=== PATIENT | female | born 1955 | race Caucasian/White ===

== ENCOUNTER 2018-01-03 14:29 | Emergency (ER) | payer OTHER ==
[2018-01-03] MEDS ORDERED: NS 0.9% 1000 ML* 1,000 ML IV ONE (15:48)
--- NOTE | 2018-01-03 16:09 | RAD ---
HISTORY: Chest pain COMPARISONS: September 16, 2015 VIEWS: 5: Frontal dual-energy and lateral views of the chest. FINDINGS: CARDIOMEDIASTINAL SILHOUETTE: The cardiomediastinal silhouette is normal. SOY: The soy are normal. PLEURA: The costophrenic angles are sharp. No pleural abnormalities are noted. LUNG PARENCHYMA: There is hyperinflation with flattening of the diaphragm and expansion of the AP diameter of the chest. ABDOMEN: The upper abdomen is clear. There is no subphrenic gas. BONES AND SOFT TISSUES: No bone or soft tissue abnormalities are noted. OTHER: None. IMPRESSION: HYPERINFLATION, CONSISTENT WITH COPD. NO ACTIVE CARDIOPULMONARY DISEASE.
[2018-01-03 16:30] LABS: ABS Basophils 0.1 10^3/ul (0-0.2); ABS Eosinophils 0.4 10^3/ul (0-0.6); ABS Lymphocytes 2.3 10^3/ul (1.0-4.8); ABS Monocytes 0.6 10^3/ul (0-0.8); ABS Neutrophils 4.2 10^3/ul (1.5-7.7); ABS Nucleated RBC 0 10^3/ul; Eosinophil % 5.9 % (0-6); Hematocrit 40 % (35-47); Hemoglobin 13.2 g/dl (12.0-16.0); Mean Corpuscular HGB Conc 33 g/dl (31-36); Mean Corpuscular Hemoglobin 30 pg (27-31); Mean Corpuscular Volume 91 fL (80-97); Mean Platelet Volume 9 um3 (7.4-10.4); Nucleated Red Blood Cells % 0; Platelet Count 212 10^3/ul (150-450); Red Blood Count 4.37 10^6/ul (4.0-5.4); Red Cell Distribution Width 13 % (10.5-15); White Blood Count 7.6 10^3/ul (3.5-10.8)
[2018-01-03 16:42] LABS: EGFR Non-African American 69.9 (>60)
[2018-01-03 16:57] LABS: INR 0.85 (0.77-1.02)
[2018-01-03] MEDS ORDERED: Methadone TAB* 5 MG PO ONE (17:28)
[2018-01-03] MEDS ORDERED: Iohexol 350* (CONTRAST) 500 ML MDV IV ONE (17:41)
[2018-01-03 17:45] LABS: Urine Appearance Clear; Urine Blood Negative (Negative); Urine Color Yellow; Urine Ketones Negative (Negative); Urine Protein Negative (Negative); Urine Specific Gravity 1.016 (1.010-1.030); Urine Urobilinogen Negative (Negative)
--- NOTE | 2018-01-03 18:16 | RAD ---
HISTORY: Pleuritic chest pain, left flank pain COMPARISONS: CT dated September 05 July 20, 2015. TECHNIQUE: Multiple contiguous axial CT scans of the chest were obtained after the administration of nonionic intravenous contrast, timed to the pulmonary arterial phase of contrast enhancement.. Coronal and sagittal multiplanar reformations are also submitted for review. FINDINGS: NECK AND THYROID: The lower neck and thyroid are unremarkable. CHEST WALL: There is no lower cervical, axillary, or supraclavicular lymphadenopathy by size criteria. HEART AND PERICARDIUM: The heart is unremarkable. AORTA AND PULMONARY VASCULATURE: There is no pulmonary arterial filling defect to suggest pulmonary embolism. There is no linear filling defect within the aorta to suggest aortic dissection. MEDIASTINUM: Again noted are mildly enlarged mediastinal lymph nodes, stable from the previous examination. SOY: Again noted are mildly enlarged hilar lymph nodes, stable from the previous examination. AIRWAY AND ESOPHAGUS: The airway is unremarkable, without endobronchial filling defect. The esophagus is grossly normal. LUNG PARENCHYMA: The lungs are clear. PLEURA: No pleural abnormalities are noted. UPPER ABDOMEN: There is intrahepatic and extrahepatic biliary dilatation. This is progressed compared to September 14, 2015. BONES AND SOFT TISSUES: No bone or soft tissue abnormalities are noted. OTHER: None. IMPRESSION: 1. NO PULMONARY ARTERIAL FILLING DEFECT TO SUGGEST PULMONARY EMBOLISM. 2. AGAIN NOTED BILIARY DILATATION, PROGRESSED FROM SEPTEMBER 14, 2015. 3. STABLE HILAR AND MEDIASTINAL LYMPHADENOPATHY.
[2018-01-03] MEDS ORDERED: Azithromycin TAB* 250 MG PO ONE (19:21)
[2018-01-03] MEDS ORDERED: Benzonatate CAP* 100 MG PO ONE (19:22)
[2018-01-03 19:30] VITALS: BP 165/74
--- NOTE | 2018-01-04 20:36 | ED ---
Lex Babb Natalie, scribed for Amanda Menjivar MD on 01/03/18 at 1750 . HPI Chest Pain - HPI Summary HPI Summary: The pt is a 62 y/o F presenting to the ED c/o sudden onset left flank pain starting today. She felt alright all day, but then after walking around for a while, her left side of her back started to hurt. The pain was sharp, and she felt like she couldnt walk. The pain worsens with movement. It radiated to her front, but is not as severe in the front as the back. The pain is rated 8/10. She has had a painful productive cough with yellow sputum for the last week as well. The patient states that it felt like she had pneumonia again. She has no urinary symptoms or pain in calves. On 12/29/17, the patient was given Tamiflu to take 75mg BID for five days. She was vomiting and sleeping all day while on the Tamiflu. She takes 5mg of Methadone as prescribed for pain management from Dr. Price.She has hx of complex regional pain syndrome of her right shoulder with stellate gangion injections for pain. She has no hx of kidney stones. She has surgical history of cholecystectomy and rotator cuff surgery in right shoulder. FHx of cancer. Her PCP is Dr. Saez - History of Current Complaint Chief Complaint: EDShortnessOfBreath Time Seen by Provider: 01/03/18 15:41 Hx Obtained From: Patient Onset/Duration: Started Hours Ago - earlier today, Still Present Timing: Constant Initial Severity: Severe Current Severity: Moderate Pain Intensity: 8 Pain Scale Used: 0-10 Numeric Chest Pain Location: Left Lateral, Right Lateral Chest Pain Radiates: Yes Chest Pain Radiates To:: Flank Character: Cough, Productive, Sharp/Stabbing Aggravating Factor(s): Movement Alleviating Factor(s): Rest Associated Signs and Symptoms: Positive: Chest Pain, Productive Cough - yellow sputum, Back Pain, Other: - NEGATIVE: urinary symptoms, calf pain Related History: Similar Episode/Dx as: - pneumonia - Additional Pertinent History Primary Care Physician: [id number] - Allergy/Home Medications Allergies/Adverse Reactions: Allergies Allergy/AdvReac Type Severity Reaction Status Date / Time amitriptyline Allergy Unknown Verified 01/03/18 18:31 Reaction Details ciprofloxacin Allergy Unknown Verified 01/03/18 18:31 Reaction Details duloxetine [From Cymbalta] Allergy Unknown Verified 01/03/18 18:31 Reaction Details dyphylline Allergy Unknown Verified 01/03/18 18:34 Reaction Details gabapentin Allergy Anxiety Verified 01/03/18 18:32 oxycodone Allergy Vomiting Verified 01/03/18 18:31 pregabalin [From Lyrica] Allergy Anxiety Verified 01/03/18 18:31 shrimp Allergy Unknown Verified 01/03/18 18:31 Reaction Details trazodone Allergy Unknown Verified 01/03/18 18:31 Reaction Details PMH/Surg Hx/FS Hx/Imm Hx Previously Healthy: No Endocrine/Hematology History: Denies: Hx Diabetes Cardiovascular History: Denies: Hx Congestive Heart Failure, Hx Hypertension Respiratory History: Reports: Hx Pneumonia - 09/17/15 History: Denies: Hx Renal Disease Musculoskeletal History: Reports: Hx Back Problems, Hx Bursitis - Hx OF, RT SHOULDER, Hx Orthopedic Injury - Fractured Left Foot 12/2013 Sensory History: Reports: Other Sensory Impairments - CRPS right shoulder/arm Neurological History: Reports: Hx Headaches Psychiatric History: Reports: Hx Depression - ON DAILY MEDS - Cancer History Hx Chemotherapy: No Hx Radiation Therapy: No - Surgical History Surgery Procedure, Year, and Place: cholecystectomy [facility]. 2010 Right rotator cuff [facility]. 01/27/14 Left 5th MTP/foot repair Hx Anesthesia Reactions: No Infectious Disease History: No Infectious Disease History: Denies: Traveled Outside the [place] in Last 30 Days - Family History Known Family History: Positive: Other - cancer - Social History Lives: With Family Alcohol Use: Weekly Alcohol Amount: 1 DRINK/WEEK Substance Use Type: Reports: None Substance Use Comment - Amount & Last Used: methadone, klonopin as prescribed by pain clinic Smoking Status (MU): Former Smoker Type: Cigarettes Amount Used/How Often: 1PPD 20 YRS Length of Time of Smoking/Using Tobacco: 20 years Have You Smoked in the Last Year: No Review of Systems Constitutional: Negative Positive: Chest Pain Positive: Cough - productive Gastrointestinal: Negative Positive: flank pain - left, other - no urinary symptoms Positive: Other - no calf pain Skin: Negative Negative: Rash Neurological: Negative Psychological: Normal All Other Systems Reviewed And Are Negative: Yes Physical Exam Triage Information Reviewed: Yes Vital Signs On Initial Exam: Initial Vitals Temp Pulse Resp BP Pulse Ox 98 F 75 20 161/82 94 01/03/18 14:39 01/03/18 14:39 01/03/18 14:39 01/03/18 14:39 01/03/18 14:39 Vital Signs Reviewed: Yes Appearance: Positive: Well-Nourished, Ill-Appearing, Pain Distress Skin: Positive: Warm, Skin Color Reflects Adequate Perfusion Head/Face: Positive: Normal Head/Face Inspection Eyes: Positive: Conjunctiva Clear ENT: Positive: Normal ENT inspection Neck: Positive: Supple Respiratory/Lung Sounds: Positive: Other - Lungs clear, Normal breath sounds, no respiratory distress Cardiovascular: Positive: Other - RRR, No murmur, pulses normal, brisk capillary refill Abdomen Description: Positive: Nontender, Soft. Negative: CVA Tenderness (R), CVA Tenderness (L) Bowel Sounds: Positive: Present Musculoskeletal: Positive: Strength/ROM Intact. Negative: Juliette Sign Left, Juliette Sign Right, Edema Left, Edema Right Neurological: Positive: Sensory/Motor Intact, Alert, Oriented to Person Place, Time, Other - Alert, muscle tone normal, facial symmetry, speech normal, sensory /motor intact. Negative: Focal Deficit @ Psychiatric: Positive: Normal Diagnostics - Vital Signs Vital Signs Temp Pulse Resp BP Pulse Ox 01/03/18 17:24 95 01/03/18 14:39 98 F 75 20 161/82 94 - Laboratory Lab Results: Lab Results 01/03/18 01/03/18 01/03/18 Range/Units 16:06 16:06 16:06 WBC (3.5-10.8) 10^3/ul RBC (4.0-5.4) 10^6/ul Hgb (12.0-16.0) g/dl Hct (35-47) % MCV (80-97) fL MCH (27-31) pg MCHC (31-36) g/dl RDW (10.5-15) % Plt Count (150-450) 10^3/ul MPV (7.4-10.4) um3 Neut % (Auto) (38-83) % Lymph % (Auto) (25-47) % Hitchcock % (Auto) (1-9) % Eos % (Auto) (0-6) % Baso % (Auto) (0-2) % Absolute Neuts (auto) (1.5-7.7) 10^3/ul Absolute Lymphs (auto) (1.0-4.8) 10^3/ul Absolute Monos (auto) (0-0.8) 10^3/ul Absolute Eos (auto) (0-0.6) 10^3/ul Absolute Basos (auto) (0-0.2) 10^3/ul Absolute Nucleated RBC 10^3/ul Nucleated RBC % INR (Anticoag Therapy) 0.85 (0.77-1.02) D-Dimer, Quantitative 303 H (Less Than 230) ng/mL Sodium 139 (133-145) mmol/L Potassium 4.2 (3.5-5.0) mmol/L Chloride 103 (101-111) mmol/L Carbon Dioxide 30 (22-32) mmol/L Anion Gap 6 (2-11) mmol/L BUN 21 (6-24) mg/dL Creatinine 0.83 (0.51-0.95) mg/dL Est GFR ( Amer) 89.9 (>60) Est GFR (Non-Af Amer) 69.9 (>60) BUN/Creatinine Ratio 25.3 H (8-20) Glucose 93 (70-100) mg/dL Lactic Acid (0.5-2.0) mmol/L Calcium 9.5 (8.6-10.3) mg/dL Total Bilirubin 0.20 (0.2-1.0) mg/dL AST 16 (13-39) U/L ALT 32 (7-52) U/L Alkaline Phosphatase 52 (34-104) U/L Total Creatine Kinase 70 (10-223) U/L CK-MB (CK-2) 1.9 (0.6-6.3) ng/mL Troponin I 0.00 (<0.04) ng/mL C-Reactive Protein 8.52 H (< 5.00) mg/L B-Natriuretic Peptide 50 ( - 100) pg/mL Total Protein 7.4 (6.4-8.9) g/dL Albumin 4.0 (3.2-5.2) g/dL Globulin 3.4 (2-4) g/dL Albumin/Globulin Ratio 1.2 (1-3) 01/03/18 01/03/18 Range/Units 16:06 16:06 WBC 7.6 (3.5-10.8) 10^3/ul RBC 4.37 (4.0-5.4) 10^6/ul Hgb 13.2 (12.0-16.0) g/dl Hct 40 (35-47) % MCV 91 (80-97) fL MCH 30 (27-31) pg MCHC 33 (31-36) g/dl RDW 13 (10.5-15) % Plt Count 212 (150-450) 10^3/ul MPV 9 (7.4-10.4) um3 Neut % (Auto) 55.8 (38-83) % Lymph % (Auto) 30.0 (25-47) % Hitchcock % (Auto) 7.4 (1-9) % Eos % (Auto) 5.9 (0-6) % Baso % (Auto) 0.9 (0-2) % Absolute Neuts (auto) 4.2 (1.5-7.7) 10^3/ul Absolute Lymphs (auto) 2.3 (1.0-4.8) 10^3/ul Absolute Monos (auto) 0.6 (0-0.8) 10^3/ul Absolute Eos (auto) 0.4 (0-0.6) 10^3/ul Absolute Basos (auto) 0.1 (0-0.2) 10^3/ul Absolute Nucleated RBC 0 10^3/ul Nucleated RBC % 0 INR (Anticoag Therapy) (0.77-1.02) D-Dimer, Quantitative (Less Than 230) ng/mL Sodium (133-145) mmol/L Potassium (3.5-5.0) mmol/L Chloride (101-111) mmol/L Carbon Dioxide (22-32) mmol/L Anion Gap (2-11) mmol/L BUN (6-24) mg/dL Creatinine (0.51-0.95) mg/dL Est GFR ( Amer) (>60) Est GFR (Non-Af Amer) (>60) BUN/Creatinine Ratio (8-20) Glucose (70-100) mg/dL Lactic Acid 1.5 (0.5-2.0) mmol/L Calcium (8.6-10.3) mg/dL Total Bilirubin (0.2-1.0) mg/dL AST (13-39) U/L ALT (7-52) U/L Alkaline Phosphatase (34-104) U/L Total Creatine Kinase (10-223) U/L CK-MB (CK-2) (0.6-6.3) ng/mL Troponin I (<0.04) ng/mL C-Reactive Protein (< 5.00) mg/L B-Natriuretic Peptide ( - 100) pg/mL Total Protein (6.4-8.9) g/dL Albumin (3.2-5.2) g/dL Globulin (2-4) g/dL Albumin/Globulin Ratio (1-3) Result Diagrams: 01/03/18 16:06 01/03/18 16:06 Lab Statement: Any lab studies that have been ordered have been reviewed, and results considered in the medical decision making process. - Radiology CXR' Xray Interpretation: No Acute Changes - Hyperinflation, consistent with COPD. No active cardiopulmonary disease. ED physician has reviewed this report. Radiology Interpretation Completed By: Radiologist - CT Chest/Thorax CTA CT Interpretation: Positive (See Comments) - 1. No pulmonary arterial filling defect to suggest pulmonary embolism. 2. Again noted biliary dilatation, progressed from September 14, 2015. 3. Stable hilar and mediastinal lymphadenopathy. ED physician has reviewed this report. CT Interpretation Completed By: Radiologist - EKG 15:58 Cardiac Rate: NL EKG Rhythm: Sinus Rhythm ST Segment: Non-Specific Ectopy: None EKG Interpretation: First degree AV block. Nml IVCT. Nml axis. Nml QTc. EKG Comparison: No Significant Change - New first degree AV block from 09/14/15. Re-Evaluation - Re-Evaluation First Eval Re-Evaluation Time: 17:50 - I explained the need to do CTA of chest due to elevated D-dimer. Pt is agreeable with this plan. Change: Unchanged Chest Pain Course/Dx - Course Course Of Treatment: Allergies noted. Pt medications reviewed during this visit. CTA shows biliary dilatation, stable hilar, and mediastinal lymphadenopathy. The patient is diagnosed with left flank pain, biliary dilatation, stable hilar, and mediastinal lymphadenopathy. - Chest Pain Differential Diagnosis/HQI/PQRI: Aortic Aneurysm, Lower Respiratory Infection, Pulmonary Embolism, Other: - Herpes zoster, renal colic, pleurisy - Diagnoses Provider Diagnoses: Left flank pain, biliary dilatation, stable hilar lymphadenopathy, Mediastinal lymphadenopathy Discharge - Discharge Plan Condition: Stable Disposition: HOME Prescriptions: Azithromycin TAB* [Zithromax TAB (Z-YOSSI) 250 mg #6 tabs] 2 tab PO .TODAY, THEN 1 DAILY #1 yossi Benzonatate CAP* [Tessalon 100 MG CAP*] 100 mg PO TID #20 cap Patient Education Materials: Acute Bronchitis (ED), Flank Pain (ED) Referrals: Breonna Saez MD [Primary Care Provider] - 2 Days () Additional Instructions: You were given Methadone 5mg at 6:10pm. We have given you a copy of your CTA of your chest. There are no pulmonary emboli (no blood clots in your lung) and also no definite pneumonia. There are abnormalities of bile duct dilation and lymph nodes in your chest, that you should discuss with Dr. Saez, but these abnormalities do not need emergency treatment now, and are probably unrelated to your pain. We are treating you for bronchitis with azithromycin because you are still coughing and bringing up sputum. Have definite follow up with Dr. Saez in 2-3 days. Return to the ER if you have any new or worsening symptoms. The documentation as recorded by the Lex hollis Natalie accurately reflects the service I personally performed and the decisions made by , Amanda Menjivar MD.
== END 2018-01-03 19:30 | disposition home or self-care (01) ==
LOC: ED 14:29
DX: R10.9 Unspecified abdominal pain (principal); R59.1 Generalized enlarged lymph nodes; Z87.891 Personal history of nicotine dependence; Z88.3 Allergy status to other anti-infective agents; Z88.8 Allergy status to other drugs, medicaments and biological substances; Z88.5 Allergy status to narcotic agent
CPT/HCPCS: 36415; 71046; 71275; 80053; 81003; 82550; 82553; 83605; 83880; 84484; 85025; 85379; 85610; 86140; 93005; 96360; 96361; 99284; A9270-GY; Q9967

== ENCOUNTER 2018-01-12 10:45 | Observation (INO) | payer OTHER ==
[2018-01-12] MEDS ORDERED: Ondansetron INJ* 2 MG/ML VIAL IV PRN (11:46)
[2018-01-12] MEDS ORDERED: Albuterol HFA INHALER* 8 gm MDI INH PRN (11:51)
[2018-01-12 11:59] LABS: Hematocrit 45 % (35-47); Hemoglobin 14.9 g/dl (12.0-16.0); Mean Corpuscular HGB Conc 33 g/dl (31-36); Mean Corpuscular Hemoglobin 30 pg (27-31); Mean Corpuscular Volume 91 fL (80-97); Mean Platelet Volume 10 um3 (7.4-10.4); Platelet Count 257 10^3/ul (150-450); Red Blood Count 4.98 10^6/ul (4.0-5.4); Red Cell Distribution Width 13 % (10.5-15); White Blood Count 11.7 10^3/ul (3.5-10.8)
[2018-01-12 12:31] LABS: EGFR Non-African American 58.4 (>60)
[2018-01-12] MEDS: Venlafaxine EXT RELEASE CAP* 75 MG PO SCH (12:35)
[2018-01-12] MEDS: Magnesium Oxide TAB* 400 MG PO SCH ×2 (12:35→21:17)
[2018-01-12] MEDS: Methadone TAB* 5 MG PO SCH ×5 (12:35→23:11)
[2018-01-12] MEDS: Morphine INJ* 10 MG/ML 1 ML CARPUJECT IV PRN ×2 (14:26→18:28)
--- NOTE | 2018-01-12 15:38 | RAD ---
HISTORY: Back pain COMPARISONS: CT of the chest dated January 03, 2015 TECHNIQUE: The following sequences were obtained of the thoracic spine: Sagittal T1 and T2-weighted images, sagittal STIR images, coronal T2-weighted images, and axial T2-weighted images. . FINDINGS: Localization is based on counting from C2 SPINAL CORD, CONUS, AND CAUDA EQUINA: The visualized spinal cord, conus, and cauda equina are normal in caliber, position, and signal intensity. ALIGNMENT: The alignment is normal. VERTEBRAL BODIES: There are multiple high T1 and high T2 signal lesions of the thoracic spine consistent with multiple hemangiomas. This includes a hemangioma that nearly completely replacing the T8 vertebral body. There is edema with loss of vertebral body height at T7. This is developed compared to January 03, 2018. There is no osseous retropulsion. Incidentally noted is a limbus vertebral body versus ununited apophysis of the superior endplate of T7. JOINTS: There is mild osteoarthritis of the costovertebral articulations. MUSCULATURE: There is moderate fatty infiltration INTERVERTEBRAL DISCS: The intervertebral discs are normal in height and T2 signal AXIAL IMAGES: There is no central canal stenosis or neuroforaminal narrowing. SOFT TISSUES: The visualized soft tissues of the chest and upper abdomen are unremarkable. OTHER: None. IMPRESSION: LOSS OF VERTEBRAL BODY HEIGHT WITH BONE EDEMA OF THE T7 VERTEBRAL BODY CONSISTENT WITH A SUBACUTE COMPRESSION FRACTURE. THERE IS NO OSSEOUS RETROPULSION.
--- NOTE | 2018-01-12 15:48 | RAD ---
HISTORY: Back and abdominal pain COMPARISONS: None relevant TECHNIQUE: The following sequences were obtained of the lumbar spine: Sagittal and axial T1- and T2-weighted images, coronal T2-weighted images, and sagittal STIR images. FINDINGS: SPINAL CORD, CONUS, AND CAUDA EQUINA: The visualized spinal cord, conus, and cauda equina are normal in caliber, position, and signal intensity. ALIGNMENT: The alignment is normal. VERTEBRAL BODIES: There is a hemangioma of L4. There is mild anterolateral marginal osteophyte formation. JOINTS: There is moderate osteoarthritis of the facet joints of the lower lumbar spine MUSCULATURE: There is moderate fatty infiltration. INTERVERTEBRAL DISCS: There is mild diffuse loss of intervertebral disc height and T2 signal throughout the spine. AXIAL IMAGES: L2-L3: There is a broad-based disc bulge. There is no significant neural foraminal narrowing or central canal stenosis. L3-L4: There is a mild disc bulge. There is no significant neural foraminal narrowing or central canal stenosis. L4-L5: There is bilateral facet hypertrophy with a mild disc bulge. There is mild bilateral neural foraminal narrowing. There is no significant central canal stenosis. L5-S1: There is a broad-based disc bulge is eccentric to the left. There is bilateral facet hypertrophy. There is moderate left neural foraminal narrowing. There is no significant central canal stenosis. SOFT TISSUES: The visualized soft tissues of the abdomen are unremarkable. OTHER: None. IMPRESSION: 1. DEGENERATIVE DISC DISEASE AND OSTEOARTHRITIS. 2. THERE IS MULTILEVEL NEURAL FORAMINAL NARROWING DESCRIBED ABOVE. THERE IS NO SIGNIFICANT CENTRAL CANAL STENOSIS.
[2018-01-12] MEDS: Naproxen TAB* 250 MG PO SCH (21:16)
[2018-01-12] MEDS: clonazePAM TAB(*) 1 MG PO SCH (21:17)
--- NOTE | 2018-01-13 01:08 | HP ---
HISTORY AND PHYSICAL: DATE OF ADMISSION: 01/12/18 HISTORY OF PRESENT ILLNESS: The patient is a 62 year old woman admitted with sever back and abdominal pain. She became ill on 12/29/17 with flu-like symptoms. She was prescribed Tamiflu. On 01/03/18, she went to the emergency room for acute onset of left flank pain and chest pain. Chest x-ray, CT scan of the chest and labs were negative at that time. She was prescribed a Z-Marcell and continue on methadone for chronic pain control in her shoulder region. She was seen on 01/06/18 and prescribed cyclobenzaprine at that time. On 01/07/18, the pain worsened and has gotten progressively worse since then. She reports the sensation of a band squeezing around her upper abdomen on the right side radiating to the back and across her epigastric area. She denies coughing, shortness of breath, nausea, vomiting, or symptoms. She has had intermittent diarrhea since taking Tamiflu and Z-Marcell over 1 week ago. She wonders whether the cyclobenzaprine may have made the pain worse. Over the weekend, I told her that she could increase her methadone from 5 a day to 8 a day because of the pain as well as take naproxen 500 mg from once a day to twice a day. Her pain got worse. It is worse when she sits up, better when she lies down. She came to my office today, was in extreme pain. She is being admitted at this time. PAST MEDICAL HISTORY: Otherwise significant for the following medical problems: 1. Complex regional pain syndrome for which she is on methadone and has had injections from Dr. Price in the past. 2. History of tobacco abuse, resolved. 3. History of asthma, improved since has no longer been smoking. 4. History of varicose veins. 5. History of anxiety. 6. Admission for pneumonia 09/13/15 to 09/17/15 at which time, she had elevated troponins due to demand ischemia and elevated LFTs likely due to infection. PAST SURGICAL HISTORY: Prior surgical procedures include right shoulder arthroscopy, rotator cuff repair, acromioplasty 11/01/11. It was after this that she developed the complex regional pain syndrome. CURRENT MEDICATIONS: 1. Clonazepam 2 mg 1 tablet at h.s. 2. Venlafaxine ER 75 mg daily. 3. Methadone 5 mg usually 5 times a day, but taking it 8 times a day with the present illness. 4. Ventolin 2 puffs every 4 hours as needed for asthma. 5. Triamcinolone acetonide 0.5% cream applied to affected area topically twice a day. 6. Naproxen 500 mg twice a day. 7. Vitamin C 500 mg daily. 8. Magnesium oxide 500 mg 3 times a day. 9. Vitamin D3 2000 units daily. 10. Vitamin B complex 1 capsule every day. ALLERGIES: SHELLFISH (shrimp) causes edema. CIPROFLOXACIN causes tendon pain. OXYCODONE causes nausea. CYMBALTA causes rash, nausea, tremors. TRAZODONE causes muscle spasm. AMITRIPTYLINE include increase in burning pain. PERCOCET caused vomiting. LYRICA caused a red, hot rash. FLEXERIL caused increase burning pain. GABAPENTIN caused increase burning pain. HABITS: Tobacco, former smoker. ETOH, 1 drink per week. Caffeine, generally drinks 3 cups a day generally coffee, tea. FAMILY HISTORY: Noncontributory. SOCIAL AND PERSONAL HISTORY: The patient is . She lives in her own home. Her is with her today. 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 REVIEW OF SYSTEMS: Otherwise is unremarkable except for abdominal discomfort and diarrhea as noted above. PHYSICAL EXAMINATION GENERAL: She is a well-developed, middle aged female, in marked pain with any movement. The patient crying in pain. VITAL SIGNS: Blood pressure 116/70, pulse 86, respirations 20, temperature 97.8 , O2 sat 95% on room air. HEENT: Atraumatic, normocephalic. Full EOMs. Mouth: Pharynx unremarkable. NECK: Supple. CHEST: Clear. HEART: Normal S1 and S2 without murmurs, gallops, or rubs. ABDOMEN: Soft with tenderness to deep palpation in the right upper quadrant, less so in the bilateral lower quadrants. There is no rebound or guarding. Bowel sounds are active. BACK: Shows no deformity. There is some tenderness in the mid thoracic spine. EXTREMITIES: Without cyanosis, clubbing, or edema. NEUROLOGIC: Without gross focal or lateralizing signs. SKIN: Warm and dry. IMPRESSION: The patient with marked intractable pain in her back and abdomen. We will admit to the hospital for MRI of the thoracic and lumbar spine, labs. is driving her up to the hospital. Further workup will be determined after these results come back. I am ordering morphine for pain control in addition to the methadone she is presently taking. [id number]/[facility] #: [id number] GINA
[2018-01-13] MEDS: Morphine INJ* 10 MG/ML 1 ML CARPUJECT IV PRN ×4 (01:25→22:11)
[2018-01-13] MEDS: Methadone TAB* 5 MG PO SCH ×7 (03:02→22:09)
[2018-01-13] MEDS: Magnesium Oxide TAB* 400 MG PO SCH ×3 (08:57→22:09)
[2018-01-13] MEDS: Naproxen TAB* 250 MG PO SCH ×2 (08:57→22:09)
[2018-01-13] MEDS: Calcitonin NASAL(NF) 200 UNITS/SPRAY NASAL.SPR ALT NARE SCH (11:03)
[2018-01-13] MEDS: Venlafaxine EXT RELEASE CAP* 75 MG PO SCH (11:24)
[2018-01-13] MEDS: clonazePAM TAB(*) 1 MG PO SCH (22:07)
[2018-01-14] MEDS: Methadone TAB* 5 MG PO SCH ×4 (03:55→08:49)
[2018-01-14 08:04] LABS: Hematocrit 39 % (35-47); Hemoglobin 13.4 g/dl (12.0-16.0); Mean Corpuscular HGB Conc 34 g/dl (31-36); Mean Corpuscular Hemoglobin 31 pg (27-31); Mean Corpuscular Volume 91 fL (80-97); Mean Platelet Volume 10 um3 (7.4-10.4); Platelet Count 212 10^3/ul (150-450); Red Blood Count 4.32 10^6/ul (4.0-5.4); Red Cell Distribution Width 13 % (10.5-15); White Blood Count 8.5 10^3/ul (3.5-10.8)
[2018-01-14 08:14] LABS: EGFR Non-African American 60.5 (>60)
[2018-01-14 08:47] VITALS: BP 133/67
[2018-01-14] MEDS: Naproxen TAB* 250 MG PO SCH (08:48)
[2018-01-14] MEDS: Magnesium Oxide TAB* 400 MG PO SCH (08:49)
[2018-01-14] MEDS: Calcitonin NASAL(NF) 200 UNITS/SPRAY NASAL.SPR ALT NARE SCH (08:49)
--- NOTE | 2018-01-15 15:41 | DS ---
DISCHARGE SUMMARY: DATE OF ADMISSION: 01/12/18 DATE OF DISCHARGE: 01/14/18 DISCHARGE DIAGNOSES: 1. T7 thoracic compression fracture. 2. Osteopenia. 3. Recent influenza. 4. History of asthma. 5. History of tobacco abuse. 6. Complex regional pain syndrome, treated. 7. History of anxiety. HISTORY: Ambar Kilgore is a 62-year-old woman admitted with severe back and abdominal pain. Please see the dictated admission note for details of the present illness, past medical history, family history, social and personal history, review of systems and physical examination. LABORATORY DATA: CBC on 01/12/18: WBC 11.7, H and H 14.9/45, MCV 91, PLT 257, 000, ESR 63. CBC on 01/14/18: WBC 8.5, H and H 13.4/39, MCV 91, PLT 212,000. Chemistries on 01/12/18: Sodium 137, potassium 4.1, chloride 99, CO2 32, BUN and creatinine 28/0.97. Rest of the comprehensive metabolic panel was within normal limits. C-reactive protein 13.71, repeat 14.13. Procalcitonin less than 0.1. Chem profile on 01/14/18 was essentially unchanged. Of note, 25- hydroxyvitamin D level in the past had been normal. This was in 2011, it was 33. IMAGING: Thoracic spine MRI on 01/12/18 showed multiple high signal lesions of the thoracic spine consistent with multiple hemangiomas including a hemangioma that nearly completely replaces the T8 vertebral body. There is edema with loss of vertebral body height at T7, which is new compared to 01/03/18. There is no osseous retropulsion. Incidentally noted is a limbus vertebral body versus ununited apophysis superior endplate of T7. There is mild osteoarthritis of the costovertebral articulations. There is moderate fatty infiltration of the musculature. There is no central canal stenosis. MRI of the lumbar spine 01/12/18 showed degenerative disk disease and osteoarthritis, multilevel neural foraminal narrowing. No significant central canal stenosis. At L5-S1, there was broad-based disk bulge eccentric to the left and moderate left neural foraminal narrowing at L5- S1. HOSPITAL COURSE: Patient was admitted. She was given morphine for pain in addition to the methadone previously ordered. Labs were done as noted above. MRI was ordered and the results showed she had a T7 thoracic compression fracture, which was the explanation for her severe pain. She was given a prescription for a thoracic brace and this was supplied by [facility]. With the use of a day, she was able to walk around without significant pain. At the time of discharge, she was feeling improved. She is being started on Miacalcin. This was ordered in the hospital, but not supplied because not on the formulary. DISCHARGE MEDICATIONS: At the time of discharge, she is to be on the following medications: 1. Albuterol 2 puffs every 4 hours p.r.n. asthma. 2. Miacalcin 200 units alternating nostrils daily. 3. Clonazepam 2 mg at h.s. 4. Magnesium oxide 400 mg 3 times a day. 5. Methadone 5 mg every 3 hours (8 rather than her usual 5 per day). DISCHARGE INSTRUCTIONS: She was told that she did not need to take naproxen, could take it if needed. Venlafaxine 75 mg p.o. extended release daily. When she comes back for her return appointment in 1 week with me, she should have a 25-hydroxyvitamin D level done. Diet is regular. Activities as tolerated. She should wear the brace when she is up. [id number]/[facility] #: [id number] GINA
== END 2018-01-14 09:30 | disposition home or self-care (01) ==
LOC: MED 10:45
PROVIDERS: ADMIT Internal Medicine Geriatric Medicine; ATTEND Internal Medicine Geriatric Medicine
DX: M48.54XA Collapsed vertebra, not elsewhere classified, thoracic region, initial encounter for fracture (principal); R07.9 Chest pain, unspecified; R10.13 Epigastric pain; G89.29 Other chronic pain; M85.80 Other specified disorders of bone density and structure, unspecified site; M51.36 Other intervertebral disc degeneration, lumbar region; J45.909 Unspecified asthma, uncomplicated; J11.1 Influenza due to unidentified influenza virus with other respiratory manifestations; F41.9 Anxiety disorder, unspecified; Z79.899 Other long term (current) drug therapy; Z88.8 Allergy status to other drugs, medicaments and biological substances; Z87.891 Personal history of nicotine dependence
CPT/HCPCS: 36415; 72146; 72148; 80053; 83690; 84145; 85027; 85652; 86140; 96374; 96376; A9270-GY; G0378; J2270

== ENCOUNTER 2018-01-28 08:49 | Emergency (ER) | payer OTHER ==
[2018-01-28] MEDS ORDERED: Morphine INJ* 10 MG/ML 1 ML CARPUJECT IV ONE (09:41)
[2018-01-28] MEDS ORDERED: Ondansetron INJ* 2 MG/ML VIAL IV ONE (09:41)
[2018-01-28] MEDS ORDERED: Morphine INJ* 4 MG/ML 1 ML SYRINGE (NEW SYRINGE VERSION) ONE (10:01)
[2018-01-28 10:29] LABS: ABS Basophils 0.1 10^3/ul (0-0.2); ABS Eosinophils 0.2 10^3/ul (0-0.6); ABS Lymphocytes 1.2 10^3/ul (1.0-4.8); ABS Monocytes 0.4 10^3/ul (0-0.8); ABS Neutrophils 6.2 10^3/ul (1.5-7.7); ABS Nucleated RBC 0 10^3/ul; Eosinophil % 2.9 % (0-6); Hematocrit 42 % (35-47); Hemoglobin 14.2 g/dl (12.0-16.0); Lymphocyte % 15.1 % (25-47); Mean Corpuscular HGB Conc 34 g/dl (31-36); Mean Corpuscular Hemoglobin 31 pg (27-31); Mean Corpuscular Volume 90 fL (80-97); Mean Platelet Volume 10 um3 (7.4-10.4); Nucleated Red Blood Cells % 0.1; Platelet Count 235 10^3/ul (150-450); Red Blood Count 4.66 10^6/ul (4.0-5.4); Red Cell Distribution Width 13 % (10.5-15); White Blood Count 8.1 10^3/ul (3.5-10.8)
[2018-01-28 10:32] LABS: EGFR Non-African American 72.9 (>60)
[2018-01-28 10:40] LABS: Urine Appearance Clear; Urine Blood Negative (Negative); Urine Color Yellow; Urine Ketones Negative (Negative); Urine Protein Negative (Negative); Urine Urobilinogen Negative (Negative)
[2018-01-28] MEDS ORDERED: Iohexol 300* (CONTRAST) 10 ML SDV IV ONE (11:16)
--- NOTE | 2018-01-28 12:47 | RAD ---
CLINICAL HISTORY: Abdominal and back pain. Relevant surgical history includes cholecystectomy. COMPARISON: MRI of the thoracic spine dated January 12, 2018 that reports evidence of a subacute compression fracture of the T7 vertebral body. TECHNIQUE: Contrast enhanced CT examination of the abdomen and pelvis from the lung bases through the initial tuberosities. The patient received 117 mL Omnipaque 300 intravenously prior to imaging.The patient received oral contrast as well prior to imaging. FINDINGS: VISUALIZED LUNG BASES: The visualized lung bases are grossly clear. There is no pleural effusion. ABDOMEN AND PELVIS: There is intrahepatic biliary duct dilatation as well as dilatation of the common bile duct. The liver is otherwise homogenous in attenuation without focal suspicious masses or surface irregularity. The spleen, pancreas and adrenal glands are grossly normal in appearance. The gallbladder is surgically absent with clips in the gallbladder fossa.. The kidneys are normal in appearance without focal mass, calcification or signs of hydronephrosis. The oral contrast has progressed as far as the sigmoid colon. The small and large bowel are not distended. There is questionable identification of a diminutive appendix seen best on the sagittal view images (image 69). The transverse colon exhibits air-fluid levels as does the more distal colon and distal small bowel. There is no definite bowel wall thickening. There is no gross retroperitoneal or mesenteric lymphadenopathy. The pelvic viscera is normal in appearance. The abdominal aorta and iliac arteries are normal in course and diameter. Degenerative changes include multilevel loss of intervertebral disc height involving the lower thoracic and lumbar spine.There are no sinister bone lesions. IMPRESSION: 1. Air-fluid levels seen throughout most of the colon and distal small bowel could be seen in the setting of diarrheal illness. 2. Gross intrahepatic biliary duct dilatation with mild dilatation of the common bile duct in the setting of prior cholecystectomy. The appearance is worse when compared to the September 14, 2015 CT examination. Please correlate to LFTs and bilirubin levels. 3. Additional chronic and degenerative changes described in the body the report.
[2018-01-28] MEDS ORDERED: Morphine INJ* 4 MG/ML 1 ML SYRINGE (NEW SYRINGE VERSION) IV ONE (13:02)
[2018-01-28 13:39] VITALS: BP 123/87
--- NOTE | 2018-01-30 09:38 | PN ---
Progress Note - Progress Note Date of Service: 01/28/18 Note: urine culture grew 25-50,000 of group strep b and 1-10,000 of normal vinh. no symptoms at visit and was seen for back pain. no further action required as this is not a sufficient amount of bacteria requiring treatment at this time.
--- NOTE | 2018-01-30 17:50 | ED ---
Pravin Babb Angela, scribed for Jame Degroot MD on 01/28/18 at 0948 . Back Pain - HPI Summary HPI Summary: This pt is a 62 y/o female presenting to [facility] c/o back and abd pain. Pt reports severe pain on her back and abdomen. She notes she was discharged on January 14 for a compression fracture of T7. Pt states she was told her fracture was a result from coughing. She additionally notes headache, nausea, soft stools. Denies vomiting. Pt is followed up by Dr. Price, from the pain clinic, and 2 days ago had a stellate block. She is currently on magnesium. - History of Current Complaint Chief Complaint: EDBackInjuryPain Stated Complaint: BACK PAIN Time Seen by Provider: 01/28/18 09:06 Hx Obtained From: Patient Onset/Duration: Lasting Days, Still Present Onset/Duration: Started Days Ago, Still Present Timing: Lasting Days Back Pain Location: Is Diffuse - in the back and abd Severity Currently: Severe Pain Intensity: 9 Pain Scale Used: 0-10 Numeric Aggravating Symptom(s): Nothing Alleviating Symptom(s): Nothing Associated Signs And Symptoms: Positive: Abdominal Pain, Other - POS: nausea NEG : vomiting. Negative: Fever, Weakness, Numbness, Tingling, Bladder Incontinence , Bowel Incontinence - Allergies/Home Medications Allergies/Adverse Reactions: Allergies Allergy/AdvReac Type Severity Reaction Status Date / Time amitriptyline Allergy Unknown Verified 01/28/18 08:55 Reaction Details ciprofloxacin Allergy Unknown Verified 01/28/18 08:55 Reaction Details duloxetine [From Cymbalta] Allergy Unknown Verified 01/28/18 08:55 Reaction Details dyphylline Allergy Unknown Verified 01/28/18 08:55 Reaction Details gabapentin Allergy Anxiety Verified 01/28/18 08:55 oxycodone Allergy Vomiting Verified 01/28/18 08:55 pregabalin [From Lyrica] Allergy Anxiety Verified 01/28/18 08:55 shrimp Allergy Unknown Verified 01/28/18 08:55 Reaction Details trazodone Allergy Unknown Verified 01/28/18 08:55 Reaction Details Home Medications: Home Medications Vitamin B Complex CAP* [B Complex CAP*] 1 cap PO DAILY 01/28/18 [History Confirmed 01/28/18] clonazePAM TAB(*) [KlonoPIN TAB(*)] 2 mg PO BEDTIME 01/28/18 [History Confirmed 01/28/18] PMH/Surg Hx/FS Hx/Imm Hx Endocrine/Hematology History: Reports: Other Endocrine/Hematological Disorders - hematoma with injection Denies: Hx Diabetes Cardiovascular History: Denies: Hx Congestive Heart Failure, Hx Hypertension, Hx Pacemaker/ICD Respiratory History: Reports: Hx Asthma, Hx Pneumonia - 09/17/15 History: Denies: Hx Renal Disease Musculoskeletal History: Reports: Hx Back Problems, Hx Bursitis - Hx OF, RT SHOULDER, Hx Orthopedic Injury - compression fracture of T7, Hx Osteoporosis, Hx of Fracture(s) - compression fracture of T7, Other Musculoskeletal History - broken foot left 12/31 Sensory History: Reports: Other Sensory Impairments - CRPS right shoulder/arm Denies: Hx Contacts or Glasses, Hx Hearing Aid Opthamlomology History: Reports: Other Sensory Impairments - CRPS right shoulder /arm Denies: Hx Contacts or Glasses Neurological History: Reports: Hx Headaches, Other Neuro Impairments/Disorders - PAIN CLINIC PT Psychiatric History: Reports: Hx Anxiety, Hx Depression, Hx Inpatient Treatment Denies: Hx Panic Disorder - Cancer History Hx Chemotherapy: No Hx Radiation Therapy: No - Surgical History Surgery Procedure, Year, and Place: GALBLADDER. RT ROTATOR CUFF. BROKEN FOOT Hx Anesthesia Reactions: No Infectious Disease History: No Infectious Disease History: Denies: Traveled Outside the [place] in Last 30 Days - Family History Known Family History: Positive: Other - cancer - Social History Alcohol Use: None Alcohol Amount: 1 DRINK/WEEK Substance Use Type: Reports: None Substance Use Comment - Amount & Last Used: methadone, klonopin as prescribed by pain clinic Smoking Status (MU): Former Smoker Type: Cigarettes Amount Used/How Often: 1PPD 20 YRS Length of Time of Smoking/Using Tobacco: 20 years Have You Smoked in the Last Year: No Review of Systems Negative: Fever, Chills Gastrointestinal: Other - soft stools Positive: Abdominal Pain, Nausea. Negative: Vomiting Musculoskeletal: Other - back pain Positive: Headache All Other Systems Reviewed And Are Negative: Yes Physical Exam - Summary Physical Exam Summary: VITAL SIGNS: Reviewed. GENERAL: Patient is a well-developed and nourished female who is lying comfortable in the stretcher. Patient is not in any acute respiratory distress. HEAD AND FACE: No signs of trauma. No ecchymosis, hematomas or skull depressions. No sinus tenderness. EYES: PERRLA, EOMI x 2, No injected conjunctiva, no nystagmus. EARS: Hearing grossly intact. Ear canals and tympanic membranes are within normal limits. MOUTH: Oropharynx within normal limits. NECK: Supple, trachea is midline, no adenopathy, no JVD, no carotid bruit, no c- spine tenderness, neck with full ROM. CHEST: Symmetric, no tenderness at palpation LUNGS: Clear to auscultation bilaterally. No wheezing or crackles. CVS: Regular rate and rhythm, S1 and S2 present, no murmurs or gallops appreciated. ABDOMEN: Soft. Diffuse abdominal tenderness. No signs of distention. No rebound no guarding, and no masses palpated. Bowel sounds are normal. MSK: FROM in all major joints, no edema, no cyanosis or clubbing. Tenderness in the thoracic spine and lumbar spine. NEURO: Alert and oriented x 3. No acute neurological deficits. Speech is normal and follows commands. SKIN: Dry and warm Triage Information Reviewed: Yes Vital Signs On Initial Exam: Initial Vitals Temp Pulse Resp BP Pulse Ox 98.2 F 93 18 153/78 93 01/28/18 08:50 01/28/18 08:50 01/28/18 08:50 01/28/18 08:50 01/28/18 08:50 Vital Signs Reviewed: Yes Diagnostics - Vital Signs Vital Signs Temp Pulse Resp BP Pulse Ox 01/28/18 08:50 98.2 F 93 18 153/78 93 - Laboratory Result Diagrams: 01/28/18 09:51 01/28/18 09:51 Lab Statement: Any lab studies that have been ordered have been reviewed, and results considered in the medical decision making process. - CT Abdomen/Pelvis CT CT Interpretation: Positive (See Comments) - IMPRESSION: 1. Air-fluid levels seen throughout most of the colon and distal small bowel could be seen in the setting of diarrheal illness. 2. Gross intrahepatic biliary duct dilatation with mild dilatation of the common bile duct in the setting of prior cholecystectomy. The appearance is worse when compared to the September 14, 2015 CT examination. Please correlated to LFTs and bilirubin levels. 3. Additional chronic and degenerative changes described in the body the report. Dr. Degroot has reviewed this radiology report. CT Interpretation Completed By: Radiologist - EKG 09:52 Cardiac Rate: NL EKG Rhythm: Sinus Rhythm - at 72 bpm EKG Interpretation: No ST elevation EKG Comparison: No Significant Change - similar to prior EKG on 01/03/18. Re-Evaluation - Re-Evaluation First Eval Re-Evaluation Time: 13:03 Comment: I reviewed the CT results with the pt. Back Pain Course/Dx - Course Assessment/Plan: This pt is a 62 y/o female presenting to [facility] c/o back and abd pain. Pt reports severe pain on her back and abdomen. She notes she was discharged on January 14 for a compression fracture of T7. Pt states she was told her fracture was a result from coughing. She additionally notes headache, nausea, soft stools. Denies vomiting. Pt is followed up by Dr. Price, from the pain clinic, and 2 days ago had a stellate block. She is currently on magnesium. Test results without any significant abnormalities except for glucose of 113, CRP of 12.91. Abdomen/pelvis CT: 1. Air-fluid levels seen throughout most of the colon and distal small bowel could be seen in the setting of diarrheal illness. 2. Gross intrahepatic biliary duct dilatation with mild dilatation of the common bile duct in the setting of prior cholecystectomy. The appearance is worse when compared to the September 14, 2015 CT examination. Please correlated to LFTs and bilirubin levels. 3. Additional chronic and degenerative changes described in the body the report. In the ED course the pt was given morphine for the pain and Zofran. Pt reports her symptoms have alleviated. Therefore she will be discharged to home with follow up from her PCP. She is instructed to return to the ED for any worsening or new symptoms. Pt is hemodynamically stable, alert and oriented x3. - Diagnoses Provider Diagnoses: Abdominal pain, Back pain Discharge - Discharge Plan Condition: Stable Disposition: HOME Patient Education Materials: Abdominal Pain (ED), Back Pain (ED) Referrals: Breonna Saez MD [Primary Care Provider] - Additional Instructions: Please follow up with your primary care provider. RETURN TO THE ED FOR ANY WORSENING SYMPTOMS. The documentation as recorded by the Pravin hollis Angela accurately reflects the service I personally performed and the decisions made by me, Jame Degroot MD.
== END 2018-01-28 13:39 | disposition home or self-care (01) ==
LOC: ED 08:49
DX: R10.9 Unspecified abdominal pain (principal); M54.9 Dorsalgia, unspecified; F17.210 Nicotine dependence, cigarettes, uncomplicated; J45.909 Unspecified asthma, uncomplicated; F41.9 Anxiety disorder, unspecified; F32.9 Major depressive disorder, single episode, unspecified
CPT/HCPCS: 36415; 74177; 80053; 81003; 81015; 82550; 83690; 84484; 85025; 86140; 87077; 87086; 93005; 96374; 96375; 96376; 99283; J2270; J2405; Q9967

== ENCOUNTER 2018-04-18 13:33 | Emergency (ER) | payer OTHER ==
[2018-04-18] MEDS ORDERED: Ondansetron ODT TAB* 4 MG PO ONE ×2 (15:27→18:08)
[2018-04-18] MEDS ORDERED: Methadone TAB* 5 MG PO ONE ×2 (15:27→18:00)
[2018-04-18] MEDS ORDERED: Methadone TAB* 10 MG PO ONE ×2 (16:05→18:30)
[2018-04-18 16:07] LABS: Urine Appearance Clear; Urine Blood Negative (Negative); Urine Color Yellow; Urine Ketones Negative (Negative); Urine Protein Negative (Negative); Urine Specific Gravity 1.016 (1.010-1.030); Urine Urobilinogen Negative (Negative)
[2018-04-18 16:24] LABS: ABS Basophils 0.1 10^3/ul (0-0.2); ABS Eosinophils 0.2 10^3/ul (0-0.6); ABS Lymphocytes 1.7 10^3/ul (1.0-4.8); ABS Monocytes 0.6 10^3/ul (0-0.8); ABS Neutrophils 6.9 10^3/ul (1.5-7.7); ABS Nucleated RBC 0 10^3/ul; Eosinophil % 1.7 % (0-6); Hematocrit 44 % (35-47); Hemoglobin 14.8 g/dl (12.0-16.0); Lymphocyte % 18.2 % (25-47); Mean Corpuscular HGB Conc 34 g/dl (31-36); Mean Corpuscular Hemoglobin 30 pg (27-31); Mean Corpuscular Volume 90 fL (80-97); Mean Platelet Volume 9.6 um3 (7.4-10.4); Nucleated Red Blood Cells % 0; Platelet Count 219 10^3/ul (150-450); Red Blood Count 4.87 10^6/ul (4.0-5.4); Red Cell Distribution Width 13 % (10.5-15); White Blood Count 9.4 10^3/ul (3.5-10.8)
--- NOTE | 2018-04-18 16:25 | RAD ---
INDICATION: Abdominal pain. History of T7 and T8 compression fractures. COMPARISON: January 03, 2018 CT. January 29, 2018 thoracic spine radiographs. TECHNIQUE: Dual energy PA and routine lateral views of the chest were obtained. REPORT: Elevated lung volumes with increased AP thoracic diameter. No focal pulmonary lesion, compelling alveolar consolidation, pleural effusion, pneumothorax. Negative for cardiomegaly. LEFT epicardial fat pad noted. Unremarkable central pulmonary vasculature and mediastinal contours. Negative for free air beneath the diaphragm. Gallbladder fossa level surgical clips. Severe anterior and middle column T7 vertebral body fracture unchanged from the January 29, 2018 exam. No new thoracic spine fractures evident. IMPRESSION: Stigmata of obstructive lung disease. No acute pulmonary or cardiac process evident.
[2018-04-18 16:35] LABS: INR 0.95 (0.77-1.02)
[2018-04-18 16:43] LABS: EGFR Non-African American 70.9 (>60)
[2018-04-18] MEDS ORDERED: Iohexol 300* (CONTRAST) 10 ML SDV IV ONE (18:39)
--- NOTE | 2018-04-18 20:00 | RAD ---
CLINICAL HISTORY: Mid abdominal pain and nausea. Relevant surgical history includes cholecystectomy. COMPARISON: CT abdomen pelvis dated January 28, 2018 TECHNIQUE: Contrast enhanced CT examination of the abdomen and pelvis from the lung bases through the initial tuberosities. The patient received 99 mL Omnipaque 300 intravenously prior to imaging.The patient received oral contrast as well prior to imaging. FINDINGS: Unless otherwise specified below comparisons reference C3 1418 CT examination. VISUALIZED LUNG BASES: The visualized lung bases are grossly clear. There is no pleural effusion. ABDOMEN AND PELVIS: Similar to the prior CT examination, there is gross dilatation of the intrahepatic and extrahepatic biliary ducts. The liver is otherwise homogenous in attenuation. The gallbladder is surgically absent with surgical clips in the gallbladder fossa. The spleen, pancreas and adrenal glands are grossly normal in appearance. A fluid density cyst is noted in the upper pole the left kidney. Otherwise the kidneys are normal in appearance without focal mass, calcification or signs of hydronephrosis. The oral contrast has progressed as far as the sigmoid colon. The small and large bowel are not distended. The patient's normal appendix is identified in the right lower quadrant measuring 5 mm in diameter with gas and oral contrast in the lumen (coronal image 47 and axial image 54). There is no gross retroperitoneal or mesenteric lymphadenopathy. The pelvic viscera is normal in appearance. The abdominal aorta and iliac arteries are normal in course and diameter. Degenerative changes include multilevel loss of intervertebral disc height involving the lower thoracic and lumbar spine.There are no sinister bone lesions. IMPRESSION: 1. Similar to the prior CT examination, there is gross dilatation of the biliary system status post cholecystectomy. These correlate to LFTs and bilirubin levels. 2. Additional chronic and degenerative changes described in the body the report.
--- NOTE | 2018-04-18 20:54 | ED ---
Anabella Babb Elizabeth, aramibed for Alejandro Vaca MD on 04/18/18 at 2009 . Progress - Progress Note Progress Note: Patient was signed out from Dr. Menjivar to Dr. Vaca upon shift change pending CT Abd/Pelvis. CT Abd/Pelvis Interpreted by radiologist. IMPRESSION: 1. Similar to the prior CT examination, there is gross dilatation of the biliary system status post cholecystectomy. These correlate to LFTs and bilirubin levels. 2. Additional chronic and degenerative changes described in the body the report. Dr. Vaca has reviewed this report. - Results/Orders Results/Orders: CT Abd/Pelvis Interpreted by radiologist. IMPRESSION: 1. Similar to the prior CT examination, there is gross dilatation of the biliary system status post cholecystectomy. These correlate to LFTs and bilirubin levels. 2. Additional chronic and degenerative changes described in the body the report. Dr. Vaca has reviewed this report. - EKG/XRAY/CT CT: CT Abd/Pelvis. Interpreted by radiologist. No acute changes. Re-Evaluation - Re-Evaluation 1st re-eval Re-Evaluation Time: 20:44 Change: Improved Comment: Discussed imaging results and course of tx with patient. Course/Dx - Course Course Of Treatment: Pt is feeling better. Exam of abdomen is benign. CT scan and labs are unremarkable. The patient is playful going home. She will be treated symptomatically with Zofran, which has helped her symptoms here. - Diagnoses Provider Diagnoses: Abdominal pain Discharge - Sign-Out/Discharge Documenting (check all that apply): Discharge/Admit/Transfer - Discharge Plan Condition: Good Disposition: HOME Prescriptions: Ondansetron TAB* [Zofran 4 MG Tab*] 8 mg PO Q6H PRN #10 tab PRN Reason: Nausea Patient Education Materials: Acute Nausea and Vomiting (ED), Abdominal Pain (ED ) Referrals: Breonna Saez MD [Primary Care Provider] - - Billing Disposition and Condition Condition: GOOD Disposition: HOME The documentation as recorded by the Anabella hollis Elizabeth accurately reflects the service I personally performed and the decisions made by , Alejandro Vaca MD.
[2018-04-18] MEDS ORDERED: O ndansetron ODT 4MG 2TAB PRPK 4 MG PAK PO ONE ×2 (21:01→21:04)
[2018-04-18 22:15] VITALS: BP 128/80
--- NOTE | 2018-04-18 22:18 | ED ---
Roz Babb Emily, scribed for Amanda Menjivar MD on 04/18/18 at 1528 . Abdominal Pain/Female - HPI Summary HPI Summary: This patient is a 62 year old F presenting to [facility] accompanied by with a chief complaint of mid abd pain and nausea that began 04/16/2018. The patient rates the pain 5/10 in severity. Symptoms alleviated by nothing. Patient reports recent weight loss of 6 lbs and central abd pain radiating to back. Patient denies vomiting, changes in frequency of bowel movements, diarrhea, and fever. Pt reports that she recently reduced her prescribed methadone from 8 3mg tablets a day to 7. Pt has the methadone prescribed by the pain clinic after developing complex regional pain syndrome following rotator cuff surgery in 2010. - History of Current Complaint Chief Complaint: EDAbdPain Stated Complaint: ABD PAIN Time Seen by Provider: 04/18/18 14:58 Hx Obtained From: Patient, Family/Sales Consultant - ?: No Onset/Duration: Sudden Onset, Lasting Days, Still Present Timing: Constant Severity Initially: Moderate Severity Currently: Moderate Pain Intensity: 5 Pain Scale Used: 0-10 Numeric Location: Other - Central Radiates: Yes Radiates to: Back Character: Dull Aggravating Factor(s): Nothing Alleviating Factor(s): Nothing Associated Signs and Symptoms: Positive: Other: - Positive recent weight loss of 6 lbs and diffuse abd pain radiating to back. Negative vomiting, changes in frequency of bowel movements, diarrhea, and fever Allergies/Adverse Reactions: Allergies Allergy/AdvReac Type Severity Reaction Status Date / Time amitriptyline Allergy Unknown Verified 04/18/18 13:39 Reaction Details ciprofloxacin Allergy Unknown Verified 04/18/18 13:39 Reaction Details duloxetine [From Cymbalta] Allergy Unknown Verified 04/18/18 13:39 Reaction Details dyphylline Allergy Unknown Verified 04/18/18 13:39 Reaction Details gabapentin Allergy Anxiety Verified 04/18/18 13:39 oxycodone Allergy Vomiting Verified 04/18/18 13:39 pregabalin [From Lyrica] Allergy Anxiety Verified 04/18/18 13:39 shrimp Allergy Unknown Verified 04/18/18 13:39 Reaction Details trazodone Allergy Unknown Verified 04/18/18 13:39 Reaction Details PMH/Surg Hx/FS Hx/Imm Hx Previously Healthy: No Endocrine/Hematology History: Denies: Hx Diabetes Cardiovascular History: Denies: Hx Congestive Heart Failure, Hx Hypertension, Hx Pacemaker/ICD Respiratory History: Reports: Hx Asthma, Hx Pneumonia - 09/17/15 History: Denies: Hx Renal Disease Musculoskeletal History: Reports: Hx Back Problems, Hx Bursitis - Hx OF, RT SHOULDER, Hx Orthopedic Injury - compression fracture of T7, Hx Osteoporosis, Other Musculoskeletal History - broken foot left 12/31 Sensory History: Reports: Other Sensory Impairments - CRPS right shoulder/arm Denies: Hx Contacts or Glasses, Hx Hearing Aid Opthamlomology History: Reports: Other Sensory Impairments - CRPS right shoulder /arm Denies: Hx Contacts or Glasses Neurological History: Reports: Hx Headaches, Other Neuro Impairments/Disorders - PAIN CLINIC PT 01/2018 T-7 COMPRESSION FX. Psychiatric History: Reports: Hx Anxiety, Hx Depression, Hx Inpatient Treatment Denies: Hx Panic Disorder - Cancer History Hx Chemotherapy: No Hx Radiation Therapy: No - Surgical History Surgery Procedure, Year, and Place: GALBLADDER. RT ROTATOR CUFF. BROKEN FOOT Hx Anesthesia Reactions: No Infectious Disease History: No Infectious Disease History: Denies: Traveled Outside the [place] in Last 30 Days - Family History Known Family History: Positive: Other - cancer - Social History Occupation: Employed Full-time Lives: With Family Alcohol Use: None Alcohol Amount: 1 DRINK/WEEK Hx Substance Use: Yes Substance Use Type: Reports: Prescribed Substance Use Comment - Amount & Last Used: methadone, klonopin as prescribed by pain clinic Hx Tobacco Use: Yes Smoking Status (MU): Former Smoker Type: Cigarettes Amount Used/How Often: 1PPD 20 YRS Length of Time of Smoking/Using Tobacco: 20 years Have You Smoked in the Last Year: No Review of Systems Negative: Fever Cardiovascular: Negative Respiratory: Negative Positive: Abdominal Pain, Nausea, Other - Positive recent weight loss. Negative changes in the frequency of bowel movements.. Negative: Vomiting, Diarrhea Positive: no symptoms reported Skin: Negative Neurological: Negative Psychological: Normal All Other Systems Reviewed And Are Negative: Yes Physical Exam - Summary Physical Exam Summary: Appearance: ill appearing, moderate pain distress, well-nourished, keeps eyes closed during interview Skin: Warm, color reflects adequate perfusion, dry Head: Normal Head/Face inspection, atraumatic Eyes: Conjunctiva clear ENT: Normal inspection Neck: Supple, no nodes, no JVD Respiratory: Lungs clear, normal breath sounds, no respiratory distress Cardio: RRR, No murmur, pulses normal, brisk capillary refill Abdomen: Soft, tenderness on mid abdomen bilaterally, no masses, no bruits, no guarding, no rebound Bowel sounds: Present Musculoskeletal: Strength Intact/ROM intact, no calf tenderness, no edema. Psychological: Normal Neuro: Alert, muscle tone normal, no focal deficit Triage Information Reviewed: Yes Vital Signs On Initial Exam: Initial Vitals Temp Pulse Resp BP Pulse Ox 97.6 F 88 20 131/95 93 04/18/18 13:39 04/18/18 13:39 04/18/18 13:39 04/18/18 13:39 04/18/18 13:39 Vital Signs Reviewed: Yes Diagnostics - Vital Signs Vital Signs Temp Pulse Resp BP Pulse Ox 04/18/18 13:39 97.6 F 88 20 131/95 93 - Laboratory Lab Results: Lab Results 04/18/18 04/18/18 04/18/18 Range/Units 15:49 16:13 16:13 WBC 9.4 (3.5-10.8) 10^3/ul RBC 4.87 (4.0-5.4) 10^6/ul Hgb 14.8 (12.0-16.0) g/dl Hct 44 (35-47) % MCV 90 (80-97) fL MCH 30 (27-31) pg MCHC 34 (31-36) g/dl RDW 13 (10.5-15) % Plt Count 219 (150-450) 10^3/ul MPV 9.6 (7.4-10.4) um3 Neut % (Auto) 73.4 (38-83) % Lymph % (Auto) 18.2 L (25-47) % [place] % (Auto) 5.9 (0-7) % Eos % (Auto) 1.7 (0-6) % Baso % (Auto) 0.8 (0-2) % Absolute Neuts (auto) 6.9 (1.5-7.7) 10^3/ul Absolute Lymphs (auto) 1.7 (1.0-4.8) 10^3/ul Absolute Monos (auto) 0.6 (0-0.8) 10^3/ul Absolute Eos (auto) 0.2 (0-0.6) 10^3/ul Absolute Basos (auto) 0.1 (0-0.2) 10^3/ul Absolute Nucleated RBC 0 10^3/ul Nucleated RBC % 0 INR (Anticoag Therapy) (0.77-1.02) APTT (26.0-36.3) seconds Sodium 140 (139-145) mmol/L Potassium 3.9 (3.5-5.0) mmol/L Chloride 103 (101-111) mmol/L Carbon Dioxide 28 (22-32) mmol/L Anion Gap 9 (2-11) mmol/L BUN 20 (6-24) mg/dL Creatinine 0.82 (0.51-0.95) mg/dL Est GFR ( Amer) 91.1 (>60) Est GFR (Non-Af Amer) 70.9 (>60) BUN/Creatinine Ratio 24.4 H (8-20) Glucose 90 (70-100) mg/dL Lactic Acid (0.5-2.0) mmol/L Calcium 9.6 (8.6-10.3) mg/dL Magnesium 2.2 (1.9-2.7) mg/dL Total Bilirubin 0.30 (0.2-1.0) mg/dL AST 13 (13-39) U/L ALT 19 (7-52) U/L Alkaline Phosphatase 49 (34-104) U/L Total Creatine Kinase 40 (10-223) U/L Troponin I 0.00 (<0.04) ng/mL C-Reactive Protein 6.20 H (< 5.00) mg/L Total Protein 7.5 (6.4-8.9) g/dL Albumin 4.3 (3.2-5.2) g/dL Globulin 3.2 (2-4) g/dL Albumin/Globulin Ratio 1.3 (1-3) Amylase 29 (29-103) U/L Lipase 10 L (11.0-82.0) U/L Urine Color Yellow Urine Appearance Clear Urine pH 6.0 (5-9) Ur Specific [place] 1.016 (1.010-1.030) Urine Protein Negative (Negative) Urine Ketones Negative (Negative) Urine Blood Negative (Negative) Urine Nitrate Negative (Negative) Urine Bilirubin Negative (Negative) Urine Urobilinogen Negative (Negative) Ur Leukocyte Esterase Trace A (Negative) Urine WBC (Auto) Trace(0-5/hpf) (Absent) Urine RBC (Auto) 1+(3-5/hpf) A (Absent) Ur Squamous Epith Cells Present A (Absent) Urine Bacteria Absent (Absent) Urine Glucose Negative (Negative) 04/18/18 04/18/18 04/18/18 Range/Units 16:14 16:14 20:17 WBC (3.5-10.8) 10^3/ul RBC (4.0-5.4) 10^6/ul Hgb (12.0-16.0) g/dl Hct (35-47) % MCV (80-97) fL MCH (27-31) pg MCHC (31-36) g/dl RDW (10.5-15) % Plt Count (150-450) 10^3/ul MPV (7.4-10.4) um3 Neut % (Auto) (38-83) % Lymph % (Auto) (25-47) % [place] % (Auto) (0-7) % Eos % (Auto) (0-6) % Baso % (Auto) (0-2) % Absolute Neuts (auto) (1.5-7.7) 10^3/ul Absolute Lymphs (auto) (1.0-4.8) 10^3/ul Absolute Monos (auto) (0-0.8) 10^3/ul Absolute Eos (auto) (0-0.6) 10^3/ul Absolute Basos (auto) (0-0.2) 10^3/ul Absolute Nucleated RBC 10^3/ul Nucleated RBC % INR (Anticoag Therapy) 0.95 (0.77-1.02) APTT 29.6 (26.0-36.3) seconds Sodium (139-145) mmol/L Potassium (3.5-5.0) mmol/L Chloride (101-111) mmol/L Carbon Dioxide (22-32) mmol/L Anion Gap (2-11) mmol/L BUN (6-24) mg/dL Creatinine (0.51-0.95) mg/dL Est GFR ( Amer) (>60) Est GFR (Non-Af Amer) (>60) BUN/Creatinine Ratio (8-20) Glucose (70-100) mg/dL Lactic Acid 0.7 0.6 (0.5-2.0) mmol/L Calcium (8.6-10.3) mg/dL Magnesium (1.9-2.7) mg/dL Total Bilirubin (0.2-1.0) mg/dL AST (13-39) U/L ALT (7-52) U/L Alkaline Phosphatase (34-104) U/L Total Creatine Kinase (10-223) U/L Troponin I (<0.04) ng/mL C-Reactive Protein (< 5.00) mg/L Total Protein (6.4-8.9) g/dL Albumin (3.2-5.2) g/dL Globulin (2-4) g/dL Albumin/Globulin Ratio (1-3) Amylase (29-103) U/L Lipase (11.0-82.0) U/L Urine Color Urine Appearance Urine pH (5-9) Ur Specific [place] (1.010-1.030) Urine Protein (Negative) Urine Ketones (Negative) Urine Blood (Negative) Urine Nitrate (Negative) Urine Bilirubin (Negative) Urine Urobilinogen (Negative) Ur Leukocyte Esterase (Negative) Urine WBC (Auto) (Absent) Urine RBC (Auto) (Absent) Ur Squamous Epith Cells (Absent) Urine Bacteria (Absent) Urine Glucose (Negative) Result Diagrams: 18 16:13 02/18 16:13 Lab Statement: Any lab studies that have been ordered have been reviewed, and results considered in the medical decision making process. - Radiology CXR Radiology Interpretation Completed By: Radiologist - CXR reveals, per radiologist, stigmata of obstructive lung disease. No acute pulmonary or cardiac process evident. ED physician has reviewed this radiology report. Re-Evaluation - Re-Evaluation First Eval Re-Evaluation Time: 16:08 Change: Unchanged Comment: She reports confirms that the gallbladder surgery is her only history of abd surgery. She reports that she still has central abd pain, and it does not feel similar to a previous bowel obstruction. Discussed plan of care with the patient. Second Eval Re-Evaluation Time: 19:04 Change: Unchanged Comment: Discussed plan of care with the patient 1st re-eval Re-Evaluation Time: 20:44 Change: Improved Comment: Discussed imaging results and course of tx with patient. Abdominal Pain Fem Course/Dx - Course Course Of Treatment: This patient is a 62 year old F presenting to [facility] accompanied by with a chief complaint of nausea and mid abdominal pain that began 04/16/2018. Bloodwork obtained. CXR reveals, per radiologist, stigmata of obstructive lung disease. No acute pulmonary or cardiac process evident. Pt will be signed out to Dr. Vaca upon shift change pending CT. She is agreeable with this plan. - Diagnoses Differential Diagnosis: Positive: Bowel Obstruction, Constipation, Diverticulitis, Pancreatitis, Other - biliary tract disease Provider Diagnoses: Abdominal pain Discharge - Sign-Out/Discharge Documenting (check all that apply): Sign-Out Patient Signing out patient TO: Alejandro Vaca - 19:00 04/18/18 - Discharge Plan Condition: Good Disposition: HOME Prescriptions: Ondansetron TAB* [Zofran 4 MG Tab*] 8 mg PO Q6H PRN #10 tab PRN Reason: Nausea Patient Education Materials: Acute Nausea and Vomiting (ED), Abdominal Pain (ED ) Referrals: Breonna Saez MD [Primary Care Provider] - - Billing Disposition and Condition Condition: GOOD Disposition: HOME The documentation as recorded by the Roz hollis Emily accurately reflects the service I personally performed and the decisions made by , Amanda Menjivar MD.
== END 2018-04-18 22:15 | disposition home or self-care (01) ==
LOC: ED 13:33
DX: R10.9 Unspecified abdominal pain (principal); J45.909 Unspecified asthma, uncomplicated; Z87.891 Personal history of nicotine dependence; Z88.8 Allergy status to other drugs, medicaments and biological substances
CPT/HCPCS: 36415; 71046; 74177; 80053; 81003; 81015; 82150; 82550; 83605; 83690; 83735; 84484; 85025; 85610; 85730; 86140; 87086; 99284; A9270-GY; Q9967

== ENCOUNTER 2020-01-21 09:36 | Observation (INO) | payer OTHER ==
--- NOTE | 2020-01-21 10:18 | ED ---
Respiratory - HPI Summary HPI Summary: 64 year old F presenting to [facility] accompanied by her male ore tester with a chief complaint of a cough, fever yesterday, nausea, vomiting, fatigue, and confusion since approximately 3 days ago. The patient rates the pain 0/10 in severity. Symptoms aggravated by nothing. Symptoms alleviated by nothing. Per the patient's visitor she has not had diarrhea. Patient denies pain or swelling in her legs. Patient reports a history of pneumonia and that she began taking Augmentin yesterday. Prior to being prescribed Augmentin the patient was taking Mucinex for her symptoms. The patient states that her medications were recently changed. Per her male ore tester the patient's symptoms are similar to her previous pneumonia. The patient has a history of asthma. She denies any history of DVT. Medication list reviewed. Allergy list reviewed. Home Medications Medication Instructions Recorded Confirmed Type Methadone TAB* [Dolophine TAB*] 5 mg PO Q3H PRN MDD 6/09/17/12 12/18/18 History Venlafaxine EXT RELEASE CAP* 75 mg PO DAILY 09/17/12 12/18/18 History [Effexor Xr CAP*] Cholecalciferol TAB* [Vitamin D 1,000 unit PO DAILY 11/28/15 12/18/18 History TAB*] Magnesium Oxide [Magnesium] 500 mg PO QID 01/12/18 12/18/18 History Vitamin B Complex CAP* [B Complex 1 cap PO DAILY 01/28/18 12/18/18 History CAP*] clonazePAM TAB(*) [KlonoPIN TAB(*)] 2 mg PO BEDTIME 01/28/18 12/18/18 History Medical Marijuana 1 dose PO . DIRECTED 05/14/18 12/18/18 History - History of Current Complaint Chief Complaint: EDUpperRespComplaint Stated Complaint: FLU LIKE SYMPTOMS Time Seen by Provider: 01/21/20 10:07 Hx Obtained From: Patient, Family/Art Librarian Onset/Duration: Lasting Days, Still Present Timing: Constant Initial Severity: Mild Current Severity: None Pain Intensity: 0 Aggravating Factor(s): Nothing Alleviating Factor(s): Nothing Associated Signs and Symptoms: Negative - Diarrhea, leg swelling, leg pain, Fever Related History: Similar Episode/Dx as - Pneumonia - Allergy/Home Medications Allergies/Adverse Reactions: Allergies Allergy/AdvReac Type Severity Reaction Status Date / Time amitriptyline Allergy Unknown Verified 01/21/20 09:42 Reaction Details ciprofloxacin Allergy Unknown Verified 01/21/20 09:42 Reaction Details duloxetine [From Cymbalta] Allergy Unknown Verified 01/21/20 09:42 Reaction Details dyphylline Allergy Unknown Verified 01/21/20 09:42 Reaction Details gabapentin Allergy Anxiety Verified 01/21/20 09:42 oxycodone Allergy Vomiting Verified 01/21/20 09:42 pregabalin [From Lyrica] Allergy Anxiety Verified 01/21/20 09:42 shrimp Allergy Unknown Verified 01/21/20 09:42 Reaction Details trazodone Allergy Unknown Verified 01/21/20 09:42 Reaction Details Home Medications: Home Medications Methadone TAB* [Dolophine TAB*] 5 mg PO Q3H PRN MDD 6/day 09/17/12 [History Confirmed 12/18/18] Magnesium Oxide [Magnesium] 500 mg PO QID 01/12/18 [History Confirmed 12/18/18] clonazePAM TAB(*) [KlonoPIN TAB(*)] 2 mg PO BEDTIME 01/28/18 [History Confirmed 12/18/18] Albuterol HFA INHALER* [Ventolin HFA Inhaler*] 2 puff INH Q4H PRN 01/21/20 [ History Confirmed 01/21/20] Amoxicillin/Clavulanate TAB* [Augmentin TAB 875*] 875 mg PO BID 01/21/20 [ History Confirmed 01/21/20] Cbd [place] 2 spray PO BID PRN 01/21/20 [History Confirmed 01/21/20] Cetirizine* [ZyrTEC 10 MG TAB*] 10 mg PO BEDTIME PRN 01/21/20 [History Confirmed 01/21/20] Cholecalciferol CAP/TAB(NF) [Vitamin D3 CAP/TAB (NF)] 2,000 unit PO DAILY [History Confirmed 01/21/20] Fluticasone/Vilanterol MDI(NF) [Breo Ellipta MDI (NF)] 1 puff INH DAILY [History Confirmed 01/21/20] Naproxen [Naprosyn 500 mg tab] 500 mg PO BID PRN 01/21/20 [History Confirmed 05/06] Ondansetron TAB* [Zofran 4 MG Tab*] 4 mg PO TID PRN 01/21/20 [History Confirmed 01/21/20] Oral Rinse (Biotene)(NF) [Biotene Dry Mouth Oral Rinse(NF)] 1 liq PO DAILY 01/20 [History Confirmed 01/21/20] Venlafaxine EXT RELEASE CAP* [Effexor Xr CAP*] 150 mg PO DAILY 01/21/20 [ History Confirmed 01/21/20] Vitamin B Complex CAP* [B Complex CAP*] 1 cap PO DAILY 01/21/20 [History Confirmed 01/21/20] PMH/Surg Hx/FS Hx/Imm Hx Endocrine/Hematology History: Reports: Other Endocrine/Hematological Disorders - hematoma with injection Denies: Hx Diabetes Cardiovascular History: Denies: Hx Congestive Heart Failure, Hx Hypertension, Hx Pacemaker/ICD Respiratory History: Reports: Hx Asthma, Hx Pneumonia - 09/17/15 History: Denies: Hx Renal Disease Musculoskeletal History: Reports: Hx Back Problems, Hx Bursitis - Hx OF, RT SHOULDER, Hx Orthopedic Injury - compression fracture of T7, Hx Osteoporosis, Other Musculoskeletal History - broken foot left 12/31 Sensory History: Reports: Other Sensory Impairments - CRPS right shoulder/arm Denies: Hx Contacts or Glasses, Hx Hearing Aid Opthamlomology History: Reports: Other Sensory Impairments - CRPS right shoulder /arm Denies: Hx Contacts or Glasses Neurological History: Reports: Hx Headaches, Other Neuro Impairments/Disorders - PAIN CLINIC PT 01/2018 T-7 COMPRESSION FX. Psychiatric History: Reports: Hx Anxiety, Hx Depression, Hx Inpatient Treatment Denies: Hx Panic Disorder - Cancer History Hx Chemotherapy: No Hx Radiation Therapy: No - Surgical History Surgery Procedure, Year, and Place: GALBLADDER. RT ROTATOR CUFF. BROKEN FOOT Hx Anesthesia Reactions: No Infectious Disease History: No Infectious Disease History: Denies: Traveled Outside the [place] in Last 30 Days - Family History Known Family History: Positive: Other - cancer - Social History Alcohol Use: Weekly Alcohol Amount: 1 Hx Substance Use: Yes Substance Use Type: Reports: None Substance Use Comment - Amount & Last Used: methadone, klonopin as prescribed by pain clinic Hx Tobacco Use: Yes Smoking Status (MU): Former Smoker Type: Cigarettes Amount Used/How Often: 1PPD 20 YRS Length of Time of Smoking/Using Tobacco: 20 years Have You Smoked in the Last Year: No Review of Systems Positive: Fever, Fatigue Positive: Cough Positive: Vomiting, Nausea. Negative: Diarrhea Musculoskeletal: Negative - Leg swelling, leg pain Neurological/Mental Status: Other - Confusion All Other Systems Reviewed And Are Negative: Yes Physical Exam - Summary Physical Exam Summary: Constitutional: Well-developed, Well-nourished, Alert. (-) Distressed; weakness ; fatigue. Skin: Warm, Dry HENT: Normocephalic; Atraumatic; dry mucous membranes. Eyes: Conjunctiva normal Neck: Musculoskeletal ROM normal neck. (-) JVD, (-) Stridor, (-) Tracheal deviation Cardio: Rhythm regular, rate normal, Heart sounds normal; Intact distal pulses; The pedal pulses are 2+ and symmetric. Radial pulses are 2+ and symmetric. (-) Murmur Pulmonary/Chest wall: Effort normal. (-) Respiratory distress, (-) Wheezes, (-) Rales, decreased breath sounds Abd: Soft, (-) tenderness, (-) Distension, (-) Guarding, (-) Rebound Musculoskeletal: (-) Edema Lymph: (-) Cervical adenopathy Neuro: Alert, Oriented x3 Psych: Mood and affect Normal Triage Information Reviewed: Yes Vital Signs On Initial Exam: Initial Vitals Temp Pulse Resp BP Pulse Ox 99.5 F 100 18 120/80 88 01/21/20 09:37 01/21/20 09:37 01/21/20 09:37 01/21/20 09:37 01/21/20 09:37 Vital Signs Reviewed: Yes Procedures - Sedation Patient Received Moderate/Deep Sedation with Procedure: No Diagnostics - Vital Signs Vital Signs Temp Pulse Resp BP Pulse Ox 01/21/20 09:37 99.5 F 100 18 120/80 88 - Laboratory Result Diagrams: 01/21/20 10:59 01/21/20 10:59 Lab Statement: Any lab studies that have been ordered have been reviewed, and results considered in the medical decision making process. - Radiology Chest x-ray Radiology Interpretation Completed By: Radiologist Summary of Radiographic Findings: HYPERINFLATION, CONSISTENT WITH COPD. NO ACTIVE CARDIOPULMONARY DISEASE. ED physician has reviewed this report. - EKG 14:02 Cardiac Rate: NL - 84 BPM EKG Rhythm: Sinus Rhythm Summary of EKG Findings: Normal ECG. Dr. Villalpando has reviewed and interpreted this EKG. Disposition - Course Course Of Treatment: 64 year old F presenting to [facility] accompanied by her male ore tester with a chief complaint of a cough, fever yesterday, nausea, vomiting, fatigue, and confusion since approximately 3 days ago. Physical exam findings: weakness, fatigue, decreased breath sounds. An EKG reveals a normal ECG. CXR reveals, per radiologist, HYPERINFLATION, CONSISTENT WITH COPD. NO ACTIVE CARDIOPULMONARY DISEASE. Laboratory results with no significant abnormalities except for a WBC of 13.4, absolute neuts of 11.7, sodium of 133, chloride of 98 , BUN of 27, BUN/creatinine ratio of 31.4, glucose of 140, ALT of 56, Urine protein of 2+ A, Ur leukocyte esterase of 1+ A, urine WBC of 1+ A, urine RBC of 2+ A, and ur squamous epith cells Present A. In the ED course, the patient was given Duoneb, normal saline, and rocephin. We discussed patient care with Dr. Almonte at 15:40 who recommended admission. The patient will be admitted. The patient is agreeable with this plan. - Diagnoses Provider Diagnoses: Acute bronchitis, Hypoxia - Physician Notifications Discussed Care Of Patient With: Lynsey Almonte Time Discussed With Above Provider: 13:40 Instructed by Provider To: Other - Spoke with Dr. Almonte regarding the patient. Discharge ED - Sign-Out/Discharge Documenting (check all that apply): Patient Departure - Discharge Plan Condition: Stable Disposition: ADMITTED TO [facility] Referrals: Breonna Saez MD [Primary Care Provider] - - Attestation Statements Document Initiated by Scribe: Yes Documenting Scribe: Angelita Palacios Provider For Whom Scribe is Documenting (Include Credential): Gen Villalpando DO Scribe Attestation: Angelita Babb scribed for Gen Villalpando DO on 01/21/20 at 7134. Status of Scribe Document: Ready
[2020-01-21] MEDS ORDERED: NS 0.9% 1000 ML** 1,000 ML IV ONE ×2 (10:19→11:38)
[2020-01-21 11:08] LABS: ABS Lymphocytes 1.1 10^3/ul (1.0-4.8); ABS Monocytes 0.5 10^3/ul (0-0.8); ABS Neutrophils 11.7 10^3/ul (1.5-7.7); Hematocrit 41 % (35-47); Hemoglobin 13.6 g/dL (12.0-16.0); Lymphocyte % 8.3 %; Mean Corpuscular HGB Conc 33 g/dL (31-36); Mean Corpuscular Hemoglobin 30 pg (27-31); Mean Corpuscular Volume 91 fL (80-97); Mean Platelet Volume 9.8 fL (7.4-10.4); Platelet Count 216 10^3/uL (150-450); Red Blood Count 4.49 10^6 /uL (3.70-4.87); Red Cell Distribution Width 13 % (10-15); White Blood Count 13.4 10^3/uL (3.5-10.8)
[2020-01-21 11:29] LABS: ALT 56 U/L (7-52); AST 24 U/L (13-39); Alkaline Phosphatase 79 U/L (34-104); Anion Gap 5 mmol/L (2-11); BUN/Creatinine Ratio 31.4 (8-20); Blood Urea Nitrogen 27 mg/dL (6-24); CO2 Carbon Dioxide 30 mmol/L (22-32); Chloride 98 mmol/L (101-111); EGFR African American 80.6 (>60); EGFR Non-African American 66.6 (>60); Globulin 3.9 g/dL (2-4); Glucose 140 mg/dL (70-100); Potassium 4.6 mmol/L (3.5-5.0); Sodium 133 mmol/L (135-145); Total Protein 7.9 g/dL (6.4-8.9)
[2020-01-21 11:56] LABS: Influenza A Molecular Negative (Negative); Influenza B Molecular Negative (Negative)
[2020-01-21] MEDS ORDERED: Albuterol/Ipratropium NEB.SOL* Albuterol 2.5 MG/Ipratropium 0.5 MG 3 ML INH ONE ×2 (12:17→14:02)
[2020-01-21] MEDS ORDERED: cefTRIAXone(*) 1 GM in NS 0.9% 50 ML* 50 ML IVPB ONE (12:17)
[2020-01-21 13:17] LABS: Urine Appearance Cloudy; Urine Bilirubin Negative (Negative); Urine Blood Negative (Negative); Urine Color Amber; Urine Glucose Negative (Negative); Urine Ketones Negative (Negative); Urine Nitrite Negative (Negative); Urine Protein 2+(100 mg/dL) (Negative); Urine Specific Gravity 1.025 (1.010-1.030); Urine Urobilinogen Negative (Negative)
[2020-01-21 13:37] LABS: Urine Bacteria Absent (Absent); Urine Red Blood Cell 2+(6-10/hpf) (Absent); Urine Squamous Epithelial Cell Present (Absent); Urine White Blood Cell 1+(6-10/hpf) (Absent)
[2020-01-21 14:29] LABS: Troponin I 0.03 ng/mL (<0.03)
[2020-01-21 15:37] LABS: Troponin I 0.03 ng/mL (<0.03)
[2020-01-21] MEDS ORDERED: Acetaminophen TAB* 325 MG PO PRN (16:26)
[2020-01-21] MEDS ORDERED: Cetirizine* 10 MG TAB PO PRN (16:30)
[2020-01-21] MEDS ORDERED: Albuterol HFA INHALER* 8 gm MDI INH PRN (16:30)
[2020-01-21] MEDS ORDERED: Enoxaparin(*) 40 MG/0.4 ML SYR SUBCUT SCH (17:00)
[2020-01-21] MEDS ORDERED: Albuterol/Ipratropium NEB.SOL* Albuterol 2.5 MG/Ipratropium 0.5 MG 3 ML INH PRN (18:47)
[2020-01-21] MEDS: NS 0.9% 1000 ML** 1,000 ML IV SCH (19:11)
[2020-01-21 19:50] LABS: Troponin I 0.02 ng/mL (<0.03)
[2020-01-21] MEDS ORDERED: DOXYcycline IV* 100 MG x ONCE IVPB ONE ×2 (20:00)
--- NOTE | 2020-01-21 21:29 | HP ---
CC: Dr. Saez * HISTORY AND PHYSICAL: DATE OF ADMISSION: 01/21/20 PROVIDER: nAgelic Adams NP PRIMARY CARE PROVIDER: Dr. Saez. ATTENDING PHYSICIAN WHILE IN THE HOSPITAL: Dr. Lynsey Almonte * (dictated by Angelic Adams NP). CHIEF COMPLAINT: Cough, shortness of breath. HISTORY OF PRESENT ILLNESS: Ms. Kilgore is a 64-year-old female with past medical history significant for asthma, complex regional pain syndrome for which she takes methadone, varicose veins, and anxiety, who presented to the emergency room with complaints of cough and congestion, decreased appetite, and shortness of breath. The patient reports that she developed laryngitis Friday. Since then she has developed a progressively worsening cough and congestion. She reports that she has been feeling fatigued, decreased energy, and loss of appetite. The patient called her primary care doctor's office and was prescribed Mucinex and Robitussin on Friday. She started this. Her symptoms continued to become worse. The patient followed up with the primary care on , at that time she was started on Augmentin 875 b.i.d. and Zofran. Due to the patient's progressively worsening symptoms and increased fatigue, the patient presented to the emergency room for further evaluation. The patient does report fevers, decreased appetite, and she denies any chest pain or edema. She does report a cough and worsening shortness of breath with exertion. No nausea, vomiting, diarrhea, abdominal pain, hematuria, dysuria. She denies any focal weakness, sensory loss, visual complaints, dysphagia, arthralgias, myalgias, rashes, lesions, open sores, psychosis or anxiety. She does not report increased fatigue. While in the emergency room, the patient had routine lab work drawn. She was found to have leukocytosis with a white count of 13.4. She has a chest x-ray that showed no evidence of pneumonia. The patient was also found to be hypoxic with a room air sat of 86 to 88% on arrival. Due to these findings, the Hospital Medicine was asked to see and evaluate her for admission. PAST MEDICAL HISTORY: Significant for complex regional pain syndrome for which she takes methadone and has injection and pain management, history of tobacco abuse, resolved; history of asthma; history of varicose veins; history of anxiety. PAST SURGICAL HISTORY: Right shoulder arthroscopy, right rotator cuff repair and acromioplasty on 01/02/11, and cholecystectomy. HOME MEDICATIONS: Include: 1. Methadone 5 mg every 4 hours. 2. Guaifenesin 10 mL every 6 hours as needed for cough. 3. Vitamin D 2000 units p.o. daily. 4. Cetirizine 10 mg at bedtime p.r.n. 5. Vitamin B complex 1 cap p.o. daily. 6. CBD spray 2 sprays b.i.d. p.r.n. 7. Naproxen 500 mg p.o. b.i.d. p.r.n. 8. Breo Ellipta 1 puff inhaled daily. 9. Effexor 150 mg p.o. daily. 10. Klonopin 2 mg p.o. at bedtime. 11. Biotene rinse daily. 12. Albuterol HFA inhaler 2 puffs q.4 hours p.r.n. 13. Zofran 4 mg p.o. t.i.d. p.r.n. 14. Magnesium 500 mg p.o. 4 times a day. 15. Augmentin 875 mg p.o. b.i.d., started yesterday, 01/20/20. ALLERGIES: AMITRIPTYLINE, CIPROFLOXACIN, DULOXETINE, , GABAPENTIN, SHRIMP , TRAZODONE, OXYCODONE. FAMILY HISTORY: No reported history of coronary artery disease, father with diabetes, brother had leukemia. SOCIAL HISTORY: The patient reports she quit smoking in 2003. Denies any alcohol or illicit drug use. She is . Surrogate decision maker in the event she is unable to make her own decisions is her . She wishes to be a DNR/DNI. REVIEW OF SYSTEMS: An 11-point review of systems was completed. All pertinent positives are mentioned in the HPI. Otherwise were negative. PHYSICAL EXAMINATION GENERAL: At this time, Ms. Kilgore is a 64-year-old female, she is drowsy, resting on the stretcher in the emergency room. VITAL SIGNS: Blood pressure 137/58, heart rate is 81, respirations 18, O2 saturation 95% on 2L nasal cannula, temperature was 99.5. HEENT: Head is atraumatic, normocephalic. Eyes, EOMs are intact. Sclerae anicteric and not pale. Oral mucosa is moist. NECK: Supple. LUNGS: Clear to auscultation bilaterally. No wheezes, rales or rhonchi. No wheezes, rales or rhonchi. CARDIAC: S1, S2. Regular rate and rhythm. No rubs or gallops. ABDOMEN: Soft and nontender. Bowel sounds are present x4. EXTREMITIES: She is able to to move all 4 extremities. There is no clubbing or cyanosis. DIAGNOSTIC STUDIES/LAB DATA: WBCs are 13.4, RBCs 4.49, hemoglobin 13.6, hematocrit 41, platelet count 216, absolute neutrophils were 11.7, D-dimer was 206. Sodium 133, potassium 4.6, chloride 98, carbon dioxide was 30, anion gap was 5, BUN was 27, creatinine 0.86, glucose was 140, lactic acid 0.9, calcium 9.0. Total bilirubin 0.40, ASTs were 24, ALTs were 56, alkaline phosphatase was 79. Troponin was 0.03. Urine color was phoebe, cloudy, pH was 6.0, specific gravity 1.025, urine protein was 2+, ketones were negative. Blood, nitrites, bilirubin, and urobilinogen were all negative. Leukocyte estrace was 1+. Urine wbc's were 1+, rbc's were 2+, squamous epithelial cells were present , bacteria was absent, glucose was negative, flu A and B were negative. IMPRESSION AND PLAN: Ms. Kilgore is a 64-year-old female with past medical history significant for asthma, anxiety, and complex pain syndrome for which she takes methadone, who presented to the emergency room with complaints of cough and congestion, increased fatigue. She will be admitted for: 1. Sepsis related to upper respiratory tract infection/bronchitis. The patient does have an elevated white count of 13.4. She was tachycardic with a heart rate of 91 to 100, lactic acid was normal at 0.9. The patient was given ceftriaxone in the emergency room. I will continue her on ceftriaxone and azithromycin and will send a urine for legionella and Strep pneumoniae. She has blood cultures that are currently pending. The patient will continue on oxygen as needed to maintain O2 saturations as above 92%. She can have DuoNeb nebulizers every 4 hours as needed for shortness of breath or wheezing. We will continue her Breo and albuterol inhalers. At this time, the patient does have slight expiratory wheezing. I will hold off on starting steroids. Should her wheezing become worse or breathing not improve, I will recommend that the initiation of steroids at that time. 2. Complex regional pain syndrome. The patient will be continued on her methadone 5 mg every 4 hours as needed for pain. 3. Asthma. The patient does have a history of asthma. Due to the fact that she has mild exacerbation due to her underlying upper respiratory tract infection as well/bronchitis, we will continue on her home inhalers as previously prescribed. She will also be continued on doxycycline and ceftriaxone. 4. FEN: She can have a regular diet. 5. Code status: She is a DNR/DNI. 6. DVT prophylaxis. I will place her on Lovenox subcu. TIME SPENT: Time spent on this admission was 60 minutes, greater than half that time was spent at the bedside reviewing events leading thus far to her hospitalization, performing physical exam, and reviewing my plan of care. I have discussed this with my attending, Dr. Lynsey Almonte; she is in agreement with my plan. ANGELIC ADAMS, SPRAY GUN OPERATOR [id number]/[facility] #: [id number] GINA
[2020-01-21] MEDS: Magnesium Oxide TAB* 400 MG PO SCH (22:02)
[2020-01-21] MEDS: clonazePAM TAB(*) 1 MG PO SCH (22:03)
[2020-01-21] MEDS: Enoxaparin(*) 40 MG/0.4 ML SYR SUBCUT SCH (22:11)
[2020-01-21 23:29] LABS: Magnesium 2.3 mg/dL (1.9-2.7)
[2020-01-22 05:12] LABS: ABS Eosinophils 0.1 10^3/ul (0-0.6); ABS Lymphocytes 1.7 10^3/ul (1.0-4.8); ABS Monocytes 0.8 10^3/ul (0-0.8); ABS Neutrophils 8.2 10^3/ul (1.5-7.7); Eosinophil % 0.9 %; Hematocrit 36 % (35-47); Lymphocyte % 15.9 %; Mean Corpuscular HGB Conc 33 g/dL (31-36); Mean Corpuscular Hemoglobin 30 pg (27-31); Mean Corpuscular Volume 91 fL (80-97); Mean Platelet Volume 9.7 fL (7.4-10.4); Nucleated Red Blood Cells % 0.1; Platelet Count 202 10^3/uL (150-450); Red Blood Count 3.98 10^6 /uL (3.70-4.87); Red Cell Distribution Width 13 % (10-15); White Blood Count 10.9 10^3/uL (3.5-10.8)
[2020-01-22 05:28] LABS: BUN/Creatinine Ratio 24.6 (8-20); Calcium 8.2 mg/dL (8.6-10.3); EGFR Non-African American 85.9 (>60); Potassium 4.3 mmol/L (3.5-5.0)
[2020-01-22] MEDS: Mometasone/Formoter 100/5 MDI INH SCH ×2 (07:36→19:51)
[2020-01-22] MEDS: Venlafaxine EXT RELEASE CAP* 75 MG PO SCH (08:13)
[2020-01-22] MEDS: DOXYcycline IV* 100 MG in NS 0.9% 250 ML* 250 ML IVPB SCH ×2 (08:13→20:18)
[2020-01-22] MEDS: Vitamin B Complex TAB PO SCH (08:13)
[2020-01-22] MEDS: Magnesium Oxide TAB* 400 MG PO SCH ×4 (08:13→20:18)
[2020-01-22] MEDS: Cholecalciferol TAB* 1000 UNITS PO SCH (08:13)
[2020-01-22] MEDS: NS 0.9% 1000 ML** 1,000 ML IV SCH (09:36)
[2020-01-22] MEDS: Methadone TAB* 5 MG PO PRN ×4 (09:39→23:55)
[2020-01-22 12:08] LABS: C Reactive Protein 65.9 mg/L (<8.01)
[2020-01-22] MEDS: cefTRIAXone(*) 1 GM in NS 0.9% 50 ML* 50 ML IVPB SCH (13:38)
[2020-01-22] MEDS: clonazePAM TAB(*) 1 MG PO SCH (20:18)
[2020-01-22] MEDS: Enoxaparin(*) 40 MG/0.4 ML SYR SUBCUT SCH (20:20)
[2020-01-23] MEDS: NS 0.9% 1000 ML** 1,000 ML IV SCH (03:06)
[2020-01-23] MEDS: Mometasone/Formoter 100/5 MDI INH SCH ×2 (07:43→20:50)
[2020-01-23] MEDS: DOXYcycline IV* 100 MG in NS 0.9% 250 ML* 250 ML IVPB SCH ×2 (08:22→21:17)
[2020-01-23] MEDS: Vitamin B Complex TAB PO SCH (08:23)
[2020-01-23] MEDS: Methadone TAB* 5 MG PO PRN ×3 (08:23→17:42)
[2020-01-23] MEDS: Venlafaxine EXT RELEASE CAP* 75 MG PO SCH (08:23)
[2020-01-23] MEDS: Cholecalciferol TAB* 1000 UNITS PO SCH (08:23)
[2020-01-23] MEDS: Magnesium Oxide TAB* 400 MG PO SCH ×4 (08:23→21:17)
[2020-01-23] MEDS: cefTRIAXone(*) 1 GM in NS 0.9% 50 ML* 50 ML IVPB SCH (12:55)
[2020-01-23] MEDS ORDERED: Magnesium Hydroxide LIQ* 30 ML UDC PO PRN (21:00)
[2020-01-23] MEDS: Enoxaparin(*) 40 MG/0.4 ML SYR SUBCUT SCH (21:17)
[2020-01-23] MEDS: clonazePAM TAB(*) 1 MG PO SCH (21:17)
[2020-01-24] MEDS: Methadone TAB* 5 MG PO PRN (03:12)
[2020-01-24 07:04] LABS: ABS Basophils 0.1 10^3/ul (0-0.2); ABS Lymphocytes 2.2 10^3/ul (1.0-4.8); ABS Monocytes 0.6 10^3/ul (0-0.8); ABS Neutrophils 6.6 10^3/ul (1.5-7.7); Eosinophil % 0.3 %; Hematocrit 41 % (35-47); Hemoglobin 13.8 g/dL (12.0-16.0); Lymphocyte % 23.3 %; Mean Corpuscular HGB Conc 34 g/dL (31-36); Mean Corpuscular Hemoglobin 30 pg (27-31); Mean Corpuscular Volume 90 fL (80-97); Mean Platelet Volume 10.1 fL (7.4-10.4); Platelet Count 268 10^3/uL (150-450); Red Blood Count 4.58 10^6 /uL (3.70-4.87); Red Cell Distribution Width 13 % (10-15); White Blood Count 9.6 10^3/uL (3.5-10.8)
[2020-01-24 07:23] LABS: BUN/Creatinine Ratio 18.3 (8-20); C Reactive Protein 16.06 mg/L (<8.01); Calcium 9.5 mg/dL (8.6-10.3); EGFR African American 100.6 (>60); EGFR Non-African American 83.1 (>60); Potassium 4.1 mmol/L (3.5-5.0)
[2020-01-24 08:14] VITALS: BP 147/71
[2020-01-24] MEDS: Mometasone/Formoter 100/5 MDI INH SCH (08:25)
[2020-01-24] MEDS: Vitamin B Complex TAB PO SCH (09:02)
[2020-01-24] MEDS: DOXYcycline IV* 100 MG in NS 0.9% 250 ML* 250 ML IVPB SCH (09:02)
[2020-01-24] MEDS: Venlafaxine EXT RELEASE CAP* 75 MG PO SCH (09:03)
[2020-01-24] MEDS: Magnesium Oxide TAB* 400 MG PO SCH (09:03)
[2020-01-24] MEDS: Cholecalciferol TAB* 1000 UNITS PO SCH (09:03)
--- NOTE | 2020-01-25 15:21 | DS ---
DATE OF ADMISSION: 01/21/2020. DATE OF DISCHARGE: 01/24/2020. DISCHARGE DIAGNOSES: 1. Exacerbation of COPD with bronchitis. 2. Confusion secondary to number 1. 3. Chronic pain due to complex regional pain syndrome. 4. History of osteopenia with compression fracture. 5. History of asthma. 6. Remote history of tobacco abuse. 7. History of anxiety. 8. Sepsis related to upper respiratory tract infection and bronchitis. 9. Proteinuria. HISTORY: Ambar Kilgore is a 64-year-old woman admitted with cough, fever, nausea, vomiting, fatigue, and confusion. Please see the dictated admission note for details of the present illness, past medical history, family history, social and personal history, review of systems, and physical examination. LABORATORY DATA: CBC on admission: WBC 13.4, H and H 13.6/41, MCV 91, PLT 216k , white count came down to 9.6 on January 23, otherwise remained essentially unchanged. D-dimer was normal at 206. Chemistries on admission: Sodium 133, potassium 4.6, chloride 98, CO2 30, BUN and creatinine 27/0.86, glucose 140, rest of her comprehensive metabolic panel is within normal limits except for ALT moderately elevated at 56. Troponins were 0.03, 0.03, 0.02. BNP was only minimally elevated at 128. C-reactive protein was 65.90 on January 21 and then 16.06 on January 23. Magnesium was normal at 2.3. Lactic acid was normal at 0.9 on admission. Urinalysis: [place], cloudy, specific gravity 1.025, pH 6, protein 2+, esterase 1+, WBC 1+, RBC 2+. Serology for flu was negative. Urine culture was no growth. Gram stain showed 4+ neutrophils, 1+ nucleated cells, 1 + epithelial cells, but no organism seen and grew out normal vinh. IMAGING: Chest x-ray on January 20 showed no acute disease and was the same on January 23. I felt that she has blunting of the left costophrenic angle, but this was not reported on the official report. EKG on 01/21/2020 showed normal sinus rhythm, normal EKG, no significant change since previous EKG of 01/28/2018. HOSPITAL COURSE: The patient was initially seen in the emergency room. There she was found to have low oxygen saturations. She was given DuoNeb, normal saline, and Rocephin. On admission, she was felt to have sepsis related to upper respiratory tract infection and bronchitis. She had an elevated white count. She was tachycardic with a heart rate of 91 to 100. Lactic acid was normal at 0.9. The patient was given Ceftriaxone in the emergency room which was continued along with Azithromycin. Legionella and strep pneumoniae were ordered to be sent in the urine. Blood cultures were done and were negative. The patient continued on oxygen as needed to remain O2 sats greater than 92 percent. DuoNebs were ordered prn. She was continued on her Breo and Albuterol inhalers. She was not started on steroids initially. Her medication , Methadone for complex regional pain syndrome was continued. She was DNR/DNI per her wishes. Lovenox was used for DVT prophylaxis. During the course of her hospitalization she improved. She did start on Prednisone on January 20, 20 mg twice a day. Her breathing became easier. Her labs improved. Her CPR came down. Her white blood count came down. Her cultures were negative. By the time of discharge, she was breathing more easily. Her lungs showed bibasilar rales, but were otherwise clear. Heart was regular. She was having saturations in the mid 90s on room air. It was felt that she could be safely discharged. At the time of discharge, she is going home in improved condition. Her diet is usual. Her activities are as tolerated. She was told not to go to work this week. MEDICATIONS AT THE TIME OF DISCHARGE: 1. Prednisone 20 mg twice a day for four additional days. 2. Doxycycline 100 mg twice a day for a week. Her usual medications: 1. Methadone 5 mg MDD 6 per day. 2. Magnesium Oxide 500 mg q.i.d. 3. Clonazepam 2 mg at bedtime. 4. Vitamin D 2,000 units daily. 5. Cetirizine 10 mg daily. 6. Vitamin B complex one daily. 7. CBD spray two sprays twice a day as needed. 8. Naproxen 500 mg twice a day as needed. 9. Breo Ellipta one inhalation daily. 10. Venlafaxine 150 mg daily. 11. Biotene mouthwash. 12. Albuterol two puffs every 4 hours as needed. 13. Ondansetron 4 mg t.i.d. prn. She was told to no longer take Augmentin which had been prescribed previous to her admission. She can take Guaifenesin DM prn and Tylenol prn. FOLLOW-UP: Follow-up will be with myself in four to seven days. At that time, I will want her to get another urinalysis. [id number]/[facility] #: [id number] MTDD
== END 2020-01-24 10:45 | disposition home or self-care (01) ==
LOC: ED 09:36 → MED 16:26
PROVIDERS: ADMIT Internal Medicine; ATTEND Internal Medicine Geriatric Medicine
DX: A41.9 Sepsis, unspecified organism (principal); J44.1 Chronic obstructive pulmonary disease with (acute) exacerbation; J40 Bronchitis, not specified as acute or chronic; G90.50 Complex regional pain syndrome I, unspecified; M85.80 Other specified disorders of bone density and structure, unspecified site; F41.9 Anxiety disorder, unspecified; R80.9 Proteinuria, unspecified; Z79.899 Other long term (current) drug therapy; Z79.891 Long term (current) use of opiate analgesic; Z87.891 Personal history of nicotine dependence; Z88.1 Allergy status to other antibiotic agents; Z88.8 Allergy status to other drugs, medicaments and biological substances
CPT/HCPCS: 36415; 71046; 80048; 80053; 81003; 81015; 83605; 83735; 83880; 84484; 85025; 85379; 86140; 87070; 87086; 87205; 93005; 94640; 96361; 96365; 96366; 96367; 96372; 99285; A9270-GY; G0378; J0696; J1650; J7512